=== PATIENT | female | born 1940 | race Caucasian/White ===

== ENCOUNTER 2020-10-08 | Outpatient (REF) | payer MEDICARE, MEDICAID, SELFPAY | END 2020-10-08 00:01 | disposition home or self-care (01) | LOC: HO.VC | PROVIDERS: Visit Provider Internal Medicine | DX: Z23 Encounter for immunization (principal) | CPT/HCPCS: 0011A ==

== ENCOUNTER 2020-11-05 | Outpatient (REF) | payer MEDICARE, MEDICAID, SELFPAY | END 2020-11-05 00:01 | disposition home or self-care (01) | LOC: HO.VC | PROVIDERS: Visit Provider Internal Medicine | DX: Z23 Encounter for immunization (principal) | CPT/HCPCS: 0012A ==

== ENCOUNTER 2021-07-23 | Outpatient (REF) | payer MEDICARE, MEDICAID, SELFPAY ==
[2021-07-24 10:54] LABS: Appearance Urine CLOUDY; Color Urine YELLOW; Glucose Urine UA NEG (NEG); Leukocyte Esterase Urine NEG (NEG); Nitrite Urine NEG (NEG); Specific Gravity - Urine 1.015 (1.005-1.025); Urine Blood NEG (NEG); Urine Ketones NEG (NEG); Urine Protein NEG (NEG-TRACE)
== END 2021-07-23 00:01 | disposition home or self-care (01) ==
LOC: HO.LNP
PROVIDERS: Visit Provider Internal Medicine
DX: E03.9 Hypothyroidism, unspecified (principal); F41.1 Generalized anxiety disorder; F17.200 Nicotine dependence, unspecified, uncomplicated
CPT/HCPCS: 81003

== ENCOUNTER 2021-07-23 08:21 | Outpatient (REF) | payer MEDICARE, MEDICAID, SELFPAY ==
[2021-07-23 09:11] LABS: Hematocrit 36.7 % (37.0-47.0); Hemoglobin 11.8 g/dl (12.0-16.0); Mean Corpuscular HGB Conc 32.2 g/dl (31.0-35.0); Mean Corpuscular Hemoglobin 29.9 pg (27.0-33.0); Mean Corpuscular Volume 93.1 fL (80.0-98.0); Mean Platelet Volume 9.8 fL (9.4-12.3); Platelet Count 239 X10*3/uL (160-400); Red Blood Count 3.94 X10*6/uL (4.20-5.50); Red Cell Distribution Width 13.3 % (11.0-16.0); White Blood Count 6.1 X10*3/uL (4.8-10.8)
[2021-07-23 09:36] LABS: Alanine Aminotransferase 7 U/L (0-31); Albumin Level 3.5 g/dL (3.5-5.0); Alkaline Phosphatase 85 U/L (39-117); Anion Gap 10 (12-20); Aspartate Amino Transferase 14 U/L (5-31); Bilirubin Direct 0.2 mg/dL (0.0-0.5); Bilirubin Total 0.3 mg/dL (0.0-1.0); Blood Urea Nitrogen 14 mg/dL (9-16); C Reactive Protein 1.51 mg/dL (< or = 0.50); Calcium 8.7 mg/dL (8.4-10.2); Carbon Dioxide 27 mmol/L (22-29); Chloride 104 mmol/L (96-108); Cholesterol 123 mg/dL; Estimated Glomerular Filt Rate 41; Glucose Random 99 mg/dL (60-115); HDL Cholesterol 30 mg/dL; LDL Cholesterol Calculated 75 mg/dl; Potassium 4.7 mmol/L (3.3-5.1); Sodium 136 mmol/L (135-145); Total Protein 7.3 g/dL (6.5-8.0); Triglycerides 91 mg/dL
[2021-07-23 09:56] LABS: Thyroid Stimulating Hormone 0.58 uIU/mL (0.32-4.0)
== END 2021-07-23 08:22 | disposition home or self-care (01) ==
LOC: HO.LAB 08:21
PROVIDERS: PCP Internal Medicine; Visit Provider Internal Medicine
DX: E03.9 Hypothyroidism, unspecified (principal); F41.1 Generalized anxiety disorder; F17.200 Nicotine dependence, unspecified, uncomplicated
CPT/HCPCS: 36415; 80048; 80061; 80076; 81003; 84443; 85027; 86140

== ENCOUNTER 2021-07-24 10:28 | Outpatient (REF) | payer MEDICARE, MEDICAID, SELFPAY | END 2021-07-24 10:29 | disposition home or self-care (01) | LOC: HO.LNP 10:28 | PROVIDERS: Visit Provider Internal Medicine | DX: Z13.89 Encounter for screening for other disorder (principal) ==

== ENCOUNTER 2021-09-08 08:50 | Outpatient (REF) | payer MEDICARE, MEDICAID, SELFPAY ==
--- NOTE | ~2021-09-08 | MM_ITS ---
EXAMINATION: BONE DENSITOMETRY CLINICAL INDICATION: Screening for osteoporosis. COMPARISON: Baseline BD dated 06/30/2007. TECHNIQUE: Using a Chronicity DXA System (software version: 13.1) manufactured by [employer], dual-energy x-ray absorptiometry was performed of the lumbar spine and left hip. The images are of good technical quality. Summary results are attached. FINDINGS: AP SPINE L1-L2 (excluding L3 and L4): The data of L1-L4 has been changed to exclude the L3 and L4 vertebral bodies, because degenerative changes at these levels may cause overestimation of lumbar spine density. Current: BMD 0.860 g/cm2, Z-score -1.9, T-score -2.5, osteoporosis, 15.5% decrease from baseline (<5% change is not significant). Baseline: BMD 1.018 g/cm2. LEFT FEMUR, NECK: Current: BMD 0.714 g/cm2, Z-score -0.9, T-score -2.3, osteopenia. Baseline: BMD 0.881 g/cm2. LEFT FEMUR, TOTAL: Current: BMD 0.822 g/cm2, Z-score -0.3, T-score -1.5, osteopenia, 14.6% decrease from baseline (<5% change is not significant). Baseline: BMD 0.962 g/cm2. IDENTIFIED RISK FACTORS: Menopause, tobacco use (current smoker), history of fracture (adult). HISTORY OF FRACTURE: Femur/hip, Tib/Fib. MEDICATIONS: None listed. MM/XR DEXA axial skeleton IMPRESSION: 1. DIAGNOSIS: Osteoporosis based on the lowest T-score value of -2.5 in the lumbar spine applying World Health Organization criteria. 2. 10-YEAR FRACTURE RISK PREDICTION, FRAX: According to the guidelines, FRAX calculation should only be performed on patients in the osteopenia bone density category. 3. Treatment Recommendations: NOF guidelines recommend consideration for treatment in postmenopausal women and men age 50 and older presenting with the following: -A hip or vertebral (clinical or morphometric) fracture. -T-score less than or equal to -2.5 at the femoral neck or spine after appropriate evaluation to exclude secondary causes. -Low bone mass at the hip or spine and a 10-year fracture probability by FRAX of greater than or equal to 3% for hip fracture or greater than or equal to 20% for major osteoporotic fracture based on the [place] adapted WHO algorithm. 4. Other Recommendations: All treatment decisions require clinical judgment and consideration of individual patient factors, including patient preferences, comorbidities, previous drug use, risk factors not captured in the FRAX model (e.g. frailty, falls, vitamin D deficiency, increased bone turnover, interval significant decline in bone density) and possible under or overestimation of fracture risk by FRAX. Additional medical evaluation for secondary cause of low bone mineral density may be appropriate. FUTURE SCAN RECOMMENDATION: People with diagnosed cases of osteoporosis or at high risk for fracture should have regular bone mineral density tests. For patients eligible for Medicare, routine testing is allowed once every 2 years. The testing frequency can be increased to one year for patients who have rapidly progressing disease, those who are receiving or discontinuing medical therapy to restore bone mass, or have additional risk factors.
== END 2021-09-08 08:51 | disposition home or self-care (01) ==
LOC: HO.MAMMO 08:50
PROVIDERS: PCP Internal Medicine; Visit Provider Internal Medicine
DX: Z13.820 Encounter for screening for osteoporosis (principal); M81.0 Age-related osteoporosis without current pathological fracture; N95.8 Other specified menopausal and perimenopausal disorders; Z78.0 Asymptomatic menopausal state; F17.200 Nicotine dependence, unspecified, uncomplicated; Z87.81 Personal history of (healed) traumatic fracture
CPT/HCPCS: 77080

== ENCOUNTER 2022-07-20 08:08 | Outpatient (REF) | payer OTHER, SELFPAY ==
[2022-07-20 08:23] LABS: MANUAL DIFF FLAG NO
[2022-07-20 09:18] LABS: Basophils Percent Auto 0.6 % (0-2); Eosinophils Absolute Auto 0.1 X10*3/uL (0.0-0.4); Hematocrit 37.3 % (37.0-47.0); Imm Gran Abs Auto 0.01 X10*3/uL (0.00-0.03); Imm Gran Pct Auto 0.1 % (0.0-0.4); Lymphocytes Percent Auto 28.6 % (20-40); Mean Corpuscular HGB Conc 32.2 g/dl (31.0-35.0); Mean Corpuscular Hemoglobin 30.5 pg (27.0-33.0); Mean Corpuscular Volume 94.7 fL (80.0-98.0); Mean Platelet Volume 10.1 fL (9.4-12.3); Monocytes Absolute Auto 0.4 X10*3/uL (0.1-1.2); Neutrophils Absolute Auto 4.5 x10*3/uL (2.0-8.3); Neutrophils Percent Auto 63.7 % (45-73); Platelet Count 259 X10*3/uL (160-400); Red Blood Count 3.94 X10*6/uL (4.20-5.50); Red Cell Distribution Width 13.7 % (11.0-16.0); White Blood Count 7.1 X10*3/uL (4.8-10.8)
[2022-07-20 09:44] LABS: Alanine Aminotransferase 7 U/L (0-31); Albumin Level 3.5 g/dL (3.5-5.0); Alkaline Phosphatase 83 U/L (39-117); Anion Gap 13 (12-20); Aspartate Amino Transferase 10 U/L (5-31); Bilirubin Total 0.2 mg/dL (0.0-1.0); Blood Urea Nitrogen 16 mg/dL (9-16); Calcium 8.9 mg/dL (8.4-10.2); Carbon Dioxide 28 mmol/L (22-29); Chloride 101 mmol/L (96-108); Cholesterol 111 mg/dL; Estimated Glomerular Filt Rate 33; Glucose Fasting 90 mg/dL (60-99); HDL Cholesterol 30 mg/dL; LDL Cholesterol Calculated 63 mg/dl; Potassium 4.3 mmol/L (3.3-5.1); Sodium 138 mmol/L (135-145); Total Protein 7.2 g/dL (6.5-8.0); Triglycerides 91 mg/dL
[2022-07-20 10:07] LABS: Thyroid Stimulating Hormone 0.18 uIU/mL (0.32-4.0)
[2022-07-20 11:42] LABS: Vitamin D 25-OH Total 26.7 ng/mL (>30)
== END 2022-07-20 08:09 | disposition home or self-care (01) ==
LOC: HO.LAB 08:08
PROVIDERS: PCP Internal Medicine; Visit Provider Internal Medicine
DX: I10 Essential (primary) hypertension (principal); E03.9 Hypothyroidism, unspecified; E55.9 Vitamin D deficiency, unspecified; E78.00 Pure hypercholesterolemia, unspecified
CPT/HCPCS: 36415; 80053; 80061; 82306; 84443; 85025

== ENCOUNTER 2022-07-23 08:18 | Outpatient (REF) | payer OTHER, SELFPAY ==
--- NOTE | ~2022-07-23 | MM_ITS ---
EXAMINATION: MM SCREENING DIGITAL BREAST TOMOSYNTHESIS, BILATERAL CLINICAL INFORMATION: Screening. Asymptomatic. The lifetime risk of breast cancer based on the Tyrer-Cuzick Model is 2%. COMPARISON: Mammography: 03/17/2016, 05/02/2013 TECHNIQUE: Digital breast tomosynthesis is performed in both the craniocaudal and mediolateral oblique views along with computer-aided detection (CAD). Synthesized 2D images are generated from the tomosynthesis. FINDINGS: The breasts are almost entirely fatty (ACR BI-RADS breast composition Category a). Background stromal markings are normal. No developing density or architectural abnormality. No interval mass. The skin contours are smooth. No abnormal calcifications on the right. Left breast has interval loosely grouped calcifications periareolar 3:00 position. There is an old intradermal calcification left areola. Patient will be recalled for additional magnification views left breast. MM/MM tomosynthesis screening BI IMPRESSION: Left: -New loosely grouped calcifications periareolar 3:00. Right: -No mammographic evidence of malignancy. ASSESSMENT: BI-RADS 0: Incomplete - Need Additional Imaging Evaluation RECOMMENDATION: 1. Additional views of the left breast (magnification CC, magnification ML). 2. Radiology department staff will contact the patient for additional imaging. This patient's information was entered into a reminder system with a target due date for their next mammogram.
== END 2022-07-23 08:19 | disposition home or self-care (01) ==
LOC: HO.MAMMO 08:18
PROVIDERS: PCP Internal Medicine; Visit Provider Nurse Practitioner Family
DX: Z12.31 Encounter for screening mammogram for malignant neoplasm of breast (principal)
CPT/HCPCS: 77063; 77067

== ENCOUNTER 2022-08-09 10:46 | Outpatient (REF) | payer OTHER, SELFPAY ==
--- NOTE | ~2022-08-09 | MM_ITS ---
EXAMINATION: MM DIAGNOSTIC DIGITAL MAMMOGRAPHY, LEFT CLINICAL INFORMATION: Recall from screening for new loosely grouped calcifications 3:00 periareolar left breast. COMPARISON: Mammography: 07/23/2022, 03/17/2016 TECHNIQUE: Digital mammography is performed in the following views: Magnification CC, magnification ML. FINDINGS: The breasts are almost entirely fatty (ACR BI-RADS breast composition Category a). The additional views show loosely grouped calcifications in linear/segmental distribution anterior 2:30 position. The calcifications vary in size and at least 10 in number. There are new from prior remote mammography 2015. No other grouped calcifications in either breast on recent mammography. Results and management options are discussed with the patient at time of visit. Patient is in agreement with attempted stereotactic sampling. MM/MM added views LT IMPRESSION: New loosely grouped calcifications in linear/segmental distribution periareolar left breast. ASSESSMENT: BI-RADS 4: Suspicious (subcategory 4A: Low suspicion for malignancy) RECOMMENDATION: Stereotactic sampling left breast calcifications. This patient's information was entered into a reminder system with a target due date for their next mammogram.
== END 2022-08-09 10:47 | disposition home or self-care (01) ==
LOC: HO.MAMMO 10:46
PROVIDERS: PCP Internal Medicine; Visit Provider Nurse Practitioner Family
DX: R92.1 Mammographic calcification found on diagnostic imaging of breast (principal)
CPT/HCPCS: 77065

== ENCOUNTER 2022-08-12 09:00 | Outpatient (REF) | payer OTHER, SELFPAY ==
--- NOTE | ~2022-08-12 | MM_ITS ---
EXAMINATION: STEREOTACTIC TOMOSYNTHESIS-GUIDED VACUUM-ASSISTED BREAST BIOPSY, LEFT SPECIMEN RADIOGRAPH, LEFT POST PROCEDURE DIGITAL MAMMOGRAM, LEFT CLINICAL INFORMATION: There are loosely grouped calcifications periareolar left breast. COMPARISON: Mammography 08/09/2022, 07/23/2022, 03/17/2016. TECHNIQUE/PROCEDURE: Informed consent was obtained from the patient after discussion of the benefits, risks, and alternatives to biopsy today. Patient appeared to understand. Gave opportunity for questions. Patient signed consent form. BIOPSY TABLE: Fire[employer] Aff[employer] Prone Biopsy System. LESION: New loosely grouped calcifications periareolar left breast. LOCAL ANESTHESIA: 10 mL carbonated 1% lidocaine; 10 mL 1% lidocaine with epinephrine. DERMATOTOMY: Single skin james dermatotomy performed. NEEDLE: [employer] 9-gauge vacuum assisted core biopsy device. APPROACH: lateral medial. TARGETING: Combination of digital breast tomosynthesis and stereotactic digital mammography used for targeting. CORES: 5. CLIP: [employer] T-shaped marker. SPECIMEN RADIOGRAPH: Specimen radiograph is taken in separate room using digital mammography. The index calcifications are in the excised cores. There are at least 10 calcifications in the cores. POST PROCEDURE UNILATERAL DIGITAL MAMMOGRAM: The post biopsy mammogram is performed in separate room using separate digital mammography equipment from the biopsy procedure. CC and ML views are obtained. There are scattered areas of fibroglandular density (breast composition category: b). The clip marker is in position. The calcifications are markedly decreased at the biopsy site. No gross hematoma. The patient tolerated the procedure well. No immediate complications. Home instructions reviewed with the patient. Final pathology results are pending. MM/MM stereotactic biopsy LT IMPRESSION: 1. Digital tomosynthesis-guided core biopsy left breast with clip placement. 2. Specimen radiograph taken and post procedure mammogram. 3. Final pathology results pending. An addendum report will be issued.
[2022-08-12] MEDS: Lidocaine HCl 1 % 20 ML VIAL 10 ML SUBCUT (11:07)
[2022-08-12] MEDS: Sodium Bicarbonate 8.4% 50 MEQ/50 ML VIAL SUBCUT (11:08)
== END 2022-08-12 09:01 | disposition home or self-care (01) ==
LOC: HO.MAMMO 09:00
PROVIDERS: PCP Internal Medicine; Visit Provider Surgery
DX: R92.1 Mammographic calcification found on diagnostic imaging of breast (principal)
CPT/HCPCS: 19081; 88305; 99202; A4648

== ENCOUNTER → 2022-08-19 09:11 | Outpatient (BNVA) | payer OTHER, SELFPAY | PROVIDERS: PCP Internal Medicine; Visit Provider Physician Assistant Surgical | DX: R92.1 Mammographic calcification found on diagnostic imaging of breast (principal); Z98.890 Other specified postprocedural states | CPT/HCPCS: 99212 ==

== ENCOUNTER 2023-01-13 08:13 | Outpatient (REF) | payer OTHER, MEDICAID, SELFPAY ==
[2023-01-13 09:07] LABS: Hematocrit 34.1 % (37.0-47.0); Hemoglobin 11.1 g/dl (12.0-16.0); Mean Corpuscular HGB Conc 32.6 g/dl (31.0-35.0); Mean Corpuscular Volume 95.3 fL (80.0-98.0); Mean Platelet Volume 9.9 fL (9.4-12.3); Platelet Count 228 X10*3/uL (160-400); Red Blood Count 3.58 X10*6/uL (4.20-5.50); Red Cell Distribution Width 13.3 % (11.0-16.0); White Blood Count 5.7 X10*3/uL (4.8-10.8)
[2023-01-13 09:50] LABS: Alanine Aminotransferase 6 U/L (0-31); Albumin Level 3.5 g/dL (3.5-5.0); Alkaline Phosphatase 67 U/L (39-117); Anion Gap 9 (12-20); Aspartate Amino Transferase 9 U/L (5-31); Bilirubin Direct 0.2 mg/dL (0.0-0.5); Bilirubin Total 0.4 mg/dL (0.0-1.0); Blood Urea Nitrogen 20 mg/dL (9-16); Calcium 8.9 mg/dL (8.4-10.2); Carbon Dioxide 29 mmol/L (22-29); Chloride 106 mmol/L (96-108); Estimated Glomerular Filt Rate 32; Glucose Random 90 mg/dL (60-115); Potassium 4.3 mmol/L (3.3-5.1); Sodium 140 mmol/L (135-145); Total Protein 6.9 g/dL (6.5-8.0)
[2023-01-13 10:07] LABS: Thyroid Stimulating Hormone 0.32 uIU/mL (0.32-4.0)
== END 2023-01-13 08:14 | disposition home or self-care (01) ==
LOC: HO.LAB 08:13
PROVIDERS: PCP Internal Medicine; Visit Provider Internal Medicine
DX: N18.31 Chronic kidney disease, stage 3a (principal); E03.9 Hypothyroidism, unspecified; J44.9 Chronic obstructive pulmonary disease, unspecified
CPT/HCPCS: 36415; 80048; 80076; 84443; 85027

== ENCOUNTER 2023-04-14 08:18 | Outpatient (AMB) | payer OTHER, SELFPAY ==
--- NOTE | 2023-04-14 08:47 | MHC.PC.OV ---
Vital Signs 04/14/23 08:49 Height 5 ft 2.5 in Weight 174 lb BMI 31.3 BP 130/72 Blood Pressure Location Lt brachial Position Sitting Pulse 66 Pulse Source Pulse Oximeter Pulse Oximetry (%) 96 Oxygen Delivery Method Room Air Intake Visit Reasons: 3mth f/u Intake Note: Patient is here to follow up on GERD, Hypercholesterolemia, COPD. 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: Not Required per policy Accompanied by: Self / Same As Patient Allergies No Known Allergies Allergy (Verified 04/30/23 08:43) Medication List - Last Reconciled 04/30/23 by James Del Toro MD albuterol sulfate 90 mcg/actuation 2 puffs inhalation Q6H PRN alendronate 70 mg PO QWEEK calcium carbonate-vitamin D3 500 mg-10 mcg (400 unit) 1 tab PO TID 90 days disposable gloves (Disposable Latex-Free Gloves) As directed fluticasone propion-salmeterol 250-50 mcg/dose 1 ea PO BID levothyroxine 112 mcg PO QAM lorazepam 1 mg PO DAILY PRN omeprazole 20 mg PO DAILY oxybutynin chloride 5 mg PO TID [reusable underpad/chux As directed] simvastatin 20 mg PO BEDTIME umeclidinium 62.5 mcg/actuation (Incruse Ellipta) 1 inh PO DAILY Tobacco use date assessed: 04/14/23 Fall risk assessment: No Falls in past year Last assessed Fall Risk: 04/14/23 Dental Screening Dental Screen Date: 04/14/23 Did you have a dental visit in the last 12 months?: No Did you have a dental problem in the last 6 months where you did not have access to dental care?: No Was dental information given to patient?: No HPI 3mth f/u HPI Details 82-year-old female presents to the office to discuss her chronic medical conditions. Patient is requesting a refill on her anxiolytic medication. Her breathing is stable with the current inhaler she is taking. Continues to take the thyroid medications as instructed. Able to function and do all activities of daily living. [facility] Medical History Acquired hypothyroidism Anxiety Anxiety state, unspecified Borderline hypercholesterolemia Breast calcification, left Chronic obstructive pulmonary disease, unspecified Current smoker GERD (gastroesophageal reflux disease) Obesity (BMI 30-39.9) Overactive bladder Pure hypercholesterolemia Smoker Urge incontinence Surgical History History of D&C Family History Father No problems noted. Mother No problems noted. Brother No problems noted. Social History Housing: Apartment Alcohol intake: never Patient Tobacco Use Status: Current everyday Tobacco user Tobacco use type: Cigarette Cigarette Packs Per Day: 0.5 Cigarettes Per Day: 15 e-Cigarette/Vaping Use: Never Used Second Hand Smoke Exposure: Yes service: No Current occupational status: disabled Cognitive needs: Yes (walker) Hearing needs: No Vision needs: Yes (Glasses) Questionnaire Thrive Questionnaire Date Thrive assessed: 01/06/23 ZANA-7 AMB Questionnaire ZANA-7 Date ZANA - 7 assessed: 01/06/23 Source: Developed by Drs. Justin Gutierrez, Nicol Lorenzo, Star Arciniega and colleagues, with an educational krista from [employer]. Physical exam (Primary Care) Vital Signs: Last Vital Signs Pulse 66 04/14/23 08:49 BP 130/72 04/14/23 08:49 Pulse Ox 96 04/14/23 08:49 Oxygen Delivery Method Room Air 04/14/23 08:49 Care Plan Goal for BP management: Blood pressure is stable. Continue current medications. BMI result Body Mass Index 31.3 BMI Assessment/Plan discussion: High (1 lb per week weight loss suggested.) BMI High, discussed plan: lifestyle, weight reduction and dietary Tobacco/Smoking Status: Tobacco use Status Tobacco use date assessed 04/14/23 04/14/23 08:56 Patient Tobacco Use Status Current everyday Tobacco 04/14/23 08:56 Tobacco use type Cigarette 04/14/23 08:56 e-Cigarette/Vaping Use Never Used 04/14/23 08:56 Are you ready to quit: No Tobacco cessation counseling provided: Yes Items discussed: Other (Dangers of continuing to smoke explained.) Thrive Assessment: Date of Thrive Assessment Date Thrive assessed 01/06/23 04/14/23 08:56 Const General: cooperative, healthy appearing and comfortable [facility] Head: Yes normal to inspection and Yes atraumatic Eyes General: appearance normal, both eyes and all related structures Neck Neck: Yes normal visual inspection and Yes full ROM Chest Chest palpation & inspection: normal inspection of the chest Resp Effort & Inspection: normal respiratory effort Auscultation: clear to auscultation bilaterally Cardio Jugular venous distension: no JVD Palpation: normal PMI Rate: regular rate Heart sounds: S1 normal heart sound present and S2 normal heart sound present GI Palpation (GI): Soft to palpation and No hepatosplenomegaly present Extrem General: Yes normal to inspection and Yes full ROM Assessment and Plan Assessment & Plan (1) Breast calcification, left: Code(s): R92.1 - Mammographic calcification found on diagnostic imaging of breast Plan: Condition is stable. (2) Stage 1 chronic kidney disease: Code(s): N18.1 - Chronic kidney disease, stage 1 Plan: Condition is stable. (3) Obesity (BMI 30-39.9): Code(s): E66.9 - Obesity, unspecified Plan: Counseling to reduce weight done. (4) Smoker: Code(s): F17.200 - Nicotine dependence, unspecified, uncomplicated Plan: Patient was counseled to quit smoking. (5) Anxiety state, unspecified: Code(s): F41.1 - Generalized anxiety disorder Plan: Continue anxiolytics at the same dosage. (6) Acquired hypothyroidism: Code(s): E03.9 - Hypothyroidism, unspecified Plan: TSH is in range. Continue Synthroid at same dosage. (7) Chronic obstructive pulmonary disease, unspecified: Code(s): J44.9 - Chronic obstructive pulmonary disease, unspecified Qualifiers: COPD type: unspecified COPD Qualified Code(s): J44.9 - Chronic obstructive pulmonary disease, unspecified Plan: Continue inhalers. Currently stable. Medications: Refilled lorazepam 1 mg PO DAILY PRN 15 tabs 1RF anxiety Coding Level of Care Code Est Pt Level 4 (27731) Diagnoses Breast calcification, left R92.1 Stage 1 chronic kidney disease N18.1 Obesity (BMI 30-39.9) E66.9 Smoker F17.200 Anxiety state, unspecified F41.1 Acquired hypothyroidism E03.9 Chronic obstructive pulmonary disease, unspecified J44.9 COPD type: unspecified COPD
[2023-04-14 08:49] VITALS: BP 130/72; PULSE 66; O2SAT 96; BMI 31.3
== END 2023-04-14 09:42 | disposition home or self-care (01) ==
PROVIDERS: Visit Provider Internal Medicine
DX: N18.1 Chronic kidney disease, stage 1 (principal); F17.210 Nicotine dependence, cigarettes, uncomplicated; E03.9 Hypothyroidism, unspecified; J44.9 Chronic obstructive pulmonary disease, unspecified; R92.1 Mammographic calcification found on diagnostic imaging of breast
CPT/HCPCS: 99214

== ENCOUNTER 2023-07-07 08:45 | Outpatient (AMB) | payer OTHER, SELFPAY ==
[2023-07-07 08:45] VITALS: BP 132/78; PULSE 79; O2SAT 93; BMI 31.5
--- NOTE | 2023-07-07 08:45 | A.OFFVIS_ITS ---
Intake Vital Signs 07/07/23 08:45 Height 5 ft 2.5 in Weight 175 lb BMI 31.5 BP 132/78 Blood Pressure Location Lt brachial Position Sitting Pulse 79 Pulse Source Pulse Oximeter Pulse Oximetry (%) 93 Oxygen Delivery Method Room Air Intake Visit Reasons: SWV [id number] Allergies No Known Allergies Allergy (Verified 07/07/23 09:11) Medication List - Last Reconciled 07/07/23 by HARRIS Bowling albuterol sulfate 90 mcg/actuation 2 puffs inhalation Q6H PRN alendronate 70 mg PO QWEEK calcium carbonate-vitamin D3 500 mg-10 mcg (400 unit) 1 tab PO TID 90 days disposable gloves (Disposable Latex-Free Gloves) As directed fluticasone propion-salmeterol 250-50 mcg/dose 1 ea PO BID levothyroxine 112 mcg PO QAM lorazepam 1 mg PO DAILY PRN omeprazole 20 mg PO DAILY oxybutynin chloride 5 mg PO TID [reusable underpad/chux As directed] simvastatin 20 mg PO BEDTIME umeclidinium 62.5 mcg/actuation (Incruse Ellipta) 1 inh PO DAILY HPI SWV [id number] HPI Details Patient is an 82-year-old female who presents today for subsequent wellness visit. Patient of Dr. Del Toro. Today we discussed patient's need for mammogram. Up-to-date with immunizations. Bone density screen 09/2021 with osteoporosis. [place] of care was reviewed with the patient and she was provided with a screening schedule. End of life planning was discussed with the patient and she was provided with healthcare proxy form, MOLST form is on file. [facility] Medical History Breast calcification, left Obesity (BMI 30-39.9) Smoker Anxiety GERD (gastroesophageal reflux disease) Pure hypercholesterolemia Anxiety state, unspecified Overactive bladder Urge incontinence Current smoker Acquired hypothyroidism Chronic obstructive pulmonary disease, unspecified Borderline hypercholesterolemia Surgical History History of D&C Family History Father No problems noted. Mother No problems noted. Brother No problems noted. Social History Housing: Apartment Alcohol intake: never Patient Tobacco Use Status: Current everyday Tobacco user Tobacco use type: Cigarette Cigarette Packs Per Day: 0.5 Cigarettes Per Day: 15 e-Cigarette/Vaping Use: Never Used Second Hand Smoke Exposure: Yes service: No Current occupational status: disabled Cognitive needs: Yes (walker) Hearing needs: No Vision needs: Yes (Glasses) Questionnaire Medicare Wellness Checkup What is your age?: 80 or older (81) What gender do you identify with?: female During the past 4 weeks, how much have you been bothered by emotional problems such as feeling anxious, depressed, irritable, sad or downhearted, and blue?: moderately During the past 4 weeks, has your physical & emotional health limited your social activities with family, friends, neighbors, or groups?: moderately During the past 4 weeks, how much bodily pain have you generally had?: mild pain During the past 4 weeks, was someone available to help you if you needed & wanted help?: yes, some During the past 4 weeks, what was the hardest physical activity you could do for at least 2 minutes?: moderate Can you get to places out of walking distance without help? (For eg., can you travel alone on buses, taxis or drive your car?): No Can you go shopping for groceries or clothes without someone's help?: No (BILINGUAL SPEECH LANGUAGE PATHOLOGIST help) Can you prepare your own meals?: Yes Can you do your housework without help?: No (sometimes) Because of any health problems, do you need the help of another person with your personal care needs such as eating, bathing, dressing or getting around the house?: Yes Can you handle your own money without help?: Yes During the past 4 weeks, how would you rate your health in general?: good During the past 4 weeks how have things been going for you?: good & bad parts about equal Are you having difficulties driving your car?: not applicable, I don't use a car Do you always fasten your seat belt when you are in a car?: yes, usually During past 4 weeks, have you been bothered by the following: never: Sexual problems? and Trouble eating well?, seldom: Problems using the telephone? and sometimes: Falling or dizzy when standing up, Teeth or denture problems? and Tiredness or fatigue? Have you fallen 2 or more times in the past year?: No Are you afraid of falling?: Yes Are you a smoker?: yes, but I'm not ready to quit During the past 4 weeks, how many drinks of wine, beer, or other alcoholic beverages did you have?: no alcohol at all Do you exercise for about 20 minutes 3 or more times a week?: yes, most of the time Have you been given information to help with the following?: yes: Keeping track of your medications? and no: Hazards in your house that might hurt you? How often do you have trouble taking medicines the way you have been told to take them?: I do not have to take medicine How confident are you that you can control & manage most of your health problems?: somewhat confident What is your race?: White Mini Mental State Exam (MMSE) Orientation What is the (year) (season) (date) (day) (month)?: year, season, date, day and month Score Score: 5 Activity of Daily Living Bathing - sponge bath, tub bath or shower: receives no assistance (gets in/out by self, if usual bathing means Dressing - getting clothes from closets & drawers, including inner/outer garments & fasteners.: gets clothes & gets completely dressed without help Toileting - going to the 'toilet room' for urine/bowel elimination & cleaning self/arranging clothes: goes to toilet room, cleans self, arranges clothes without help Transfer: moves in & out of bed and chair without help (may use support object) Continence: controls urination/bowel movements completely by self Feeding: feeds self without help Total Score: 0 Information obtained from: patient Using telephone: independent Traveling: dependent Shopping: dependent Preparing meals: independent Housework: dependent Taking medicine: independent Managing money: independent PHQ-9 Over the last 2 weeks, how often have you been bothered by any of the following problems? 1. Little interest or pleasure in doing things: several days 2. Feeling down, depressed, or hopeless: several days 3. Trouble falling or staying asleep, or sleeping too much: several days 4. Feeling tired or having little energy: several days 5. Poor appetite or overeating: several days 6. Feeling bad about yourself - or that you are a failure or have let yourself or your family down: several days 7. Trouble concentrating on things, such as reading the newspaper or watching television: not at all 8. Moving or speaking so slowly that other people could have noticed. Or the opposite - being so fidgety or restless that you have been moving around a lot more than usual: several days 9. Thoughts that you would be better off or of hurting yourself in some way: not at all Total score: 7 Depression Screening Interpretation: Negative Depression Screening Done: Yes [id number] - PHQ-9 Billing: Yes Source: Developed by Drs. Justin Gutierrez, Nicol Lorenzo, Star Arciniega and colleagues, with an educational krista from [employer]. Physical Exam Vital Signs: Last Vital Signs Pulse 79 07/07/23 08:45 BP 132/78 07/07/23 08:45 Pulse Ox 93 07/07/23 08:45 Oxygen Delivery Method Room Air 07/07/23 08:45 BMI result Body Mass Index 31.5 Const General: cooperative and no acute distress Orientation/consciousness: patient oriented x3 HEENT Other: Whisper test: pass Neuro Other: Balance: Normal - patient ambulates with a rolling walker Get up and walk: unable to Romberg: negative Tandem gait: unable to General: patient oriented x3 Assessment & Plan Assessment & Plan (1) Obesity (BMI 30-39.9): Code(s): E66.9 - Obesity, unspecified Plan: Healthy food choices and exercise as tolerated (2) GERD (gastroesophageal reflux disease): Code(s): K21.9 - Gastro-esophageal reflux disease without esophagitis Qualifiers: Esophagitis presence: without esophagitis Qualified Code(s): K21.9 - Gastro-esophageal reflux disease without esophagitis Plan: Omeprazole 20 mg daily Avoid GERD trigger foods Do not lay down 2-3 hours after evening meal (3) Pure hypercholesterolemia: Code(s): E78.00 - Pure hypercholesterolemia, unspecified Plan: Continue current treatment Low-cholesterol diet (4) Osteoporosis: Code(s): M81.0 - Age-related osteoporosis without current pathological fracture Qualifiers: Osteoporosis type: age-related Presence of current pathological fracture: without current pathological fracture Qualified Code(s): M81.0 - Age- related osteoporosis without current pathological fracture Plan: Patient is on alendronate 70 mg weekly (5) Encounter for general adult medical examination without abnormal findings: Code(s): Z00.00 - Encounter for general adult medical examination without abnormal findings (6) Acquired hypothyroidism: Code(s): E03.9 - Hypothyroidism, unspecified Plan: Levothyroxine 112 mcg daily (7) Chronic obstructive pulmonary disease, unspecified: Code(s): J44.9 - Chronic obstructive pulmonary disease, unspecified Qualifiers: COPD type: unspecified COPD Qualified Code(s): J44.9 - Chronic obstructive pulmonary disease, unspecified Plan: Stable Continue current treatment (8) Screening for breast cancer: Code(s): Z12.39 - Encounter for other screening for malignant neoplasm of breast (9) Smoker: Code(s): F17.200 - Nicotine dependence, unspecified, uncomplicated Plan: Encouraged smoking cessation Patient declined nicotine patch Orders: Orders MM tomosynthesis screening BI 08/22/23 Z12.31 - Encounter for screening mammogram for malignant neoplasm of breast Quality Reporting (2019) Depression/Bipolar (159/160/161/177) PHQ-9: Total score: 7 Coding Level of Care Code Medicare Subsequent (G0439) Diagnoses Obesity (BMI 30-39.9) E66.9 Gastroesophageal reflux disease without esophagitis K21.9 Esophagitis presence: without esophagitis Pure hypercholesterolemia E78.00 Age-related osteoporosis without current pathological fracture M81.0 Osteoporosis type: age-related Presence of current pathological fracture: without current pathological fracture Encounter for general adult medical examination without abnormal findings Z00.00 Acquired hypothyroidism E03.9 Chronic obstructive pulmonary disease, unspecified COPD type J44.9 COPD type: unspecified COPD Screening for breast cancer Z12.39 Smoker F17.200 CPT Codes Advance Care Planning - Advance Care Planning discussion: On file, no changes ([id number]) Advance Care Planning - Time spent: 1-15 minutes, on File ([id number]) Advance Care Planning Advance Care Planning discussion: On file, no changes Date of discussion: 07/07/23 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
== END 2023-07-07 10:11 | disposition home or self-care (01) ==
PROVIDERS: Visit Provider Nurse Practitioner Family
DX: Z00.00 Encounter for general adult medical examination without abnormal findings (principal); J44.9 Chronic obstructive pulmonary disease, unspecified; E66.9 Obesity, unspecified; Z68.31 Body mass index [BMI] 31.0-31.9, adult; K21.9 Gastro-esophageal reflux disease without esophagitis; E78.00 Pure hypercholesterolemia, unspecified; M81.0 Age-related osteoporosis without current pathological fracture; E03.9 Hypothyroidism, unspecified; F17.210 Nicotine dependence, cigarettes, uncomplicated
CPT/HCPCS: 1123F; G0439

== ENCOUNTER 2023-07-14 09:00 | Outpatient (AMB) | payer OTHER, SELFPAY ==
--- NOTE | 2023-07-14 09:18 | MHC.PC.OV ---
Vital Signs 07/14/23 09:20 Height 5 ft 2.5 in Weight 185 lb 2 oz BMI 33.3 BP 136/76 Blood Pressure Location Lt brachial Position Sitting Pulse 105 H Pulse Source Pulse Oximeter Pulse Oximetry (%) 94 Oxygen Delivery Method Room Air Intake Visit Reasons: 3 mon F/U Intake Note: Patient is here to follow up on CKD, GERD, COPD. 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: Not Required per policy Accompanied by: Self / Same As Patient Allergies No Known Allergies Allergy (Verified 07/17/23 13:58) Medication List - Last Reconciled 07/17/23 by James Del Toro MD albuterol sulfate 90 mcg/actuation 2 puffs inhalation Q6H PRN alendronate 70 mg PO QWEEK calcium carbonate-vitamin D3 500 mg-10 mcg (400 unit) 1 tab PO TID 90 days disposable gloves (Disposable Latex-Free Gloves) As directed fluticasone propion-salmeterol 250-50 mcg/dose 1 ea PO BID levothyroxine 112 mcg PO QAM lorazepam 1 mg PO DAILY PRN omeprazole 20 mg PO DAILY oxybutynin chloride 5 mg PO TID [reusable underpad/chux As directed] simvastatin 20 mg PO BEDTIME umeclidinium 62.5 mcg/actuation (Incruse Ellipta) 1 inh PO DAILY Tobacco use date assessed: 07/14/23 HPI 3 mon F/U HPI Details 82-year-old female presents to the office to discuss her chronic medical conditions. Patient is at baseline state of health. She is compliant with all her medications and reporting no side effects. Able to function and do all activities of daily living. [facility] Medical History Breast calcification, left Obesity (BMI 30-39.9) Smoker Anxiety GERD (gastroesophageal reflux disease) Pure hypercholesterolemia Anxiety state, unspecified Overactive bladder Urge incontinence Current smoker Acquired hypothyroidism Chronic obstructive pulmonary disease, unspecified Borderline hypercholesterolemia Surgical History History of D&C Family History Father No problems noted. Mother No problems noted. Brother No problems noted. Social History Housing: Apartment Alcohol intake: never Patient Tobacco Use Status: Current everyday Tobacco user Tobacco use type: Cigarette Cigarette Packs Per Day: 0.5 Cigarettes Per Day: 15 e-Cigarette/Vaping Use: Never Used Second Hand Smoke Exposure: Yes service: No Current occupational status: disabled Cognitive needs: Yes (walker) Hearing needs: No Vision needs: Yes (Glasses) Questionnaire PHQ-9 Over the last 2 weeks, how often have you been bothered by any of the following problems? Depression Screening Interpretation: Negative Depression Screening Done: Yes Source: Developed by Drs. Justin Gutierrez, Star Pack and colleagues, with an educational krista from [employer]. Thrive Questionnaire Date Thrive assessed: 01/06/23 Currently or been in a relationship where the following occur: no concerns reported ZANA-7 AMB Questionnaire ZANA-7 Date ZANA - 7 assessed: 01/06/23 Source: Developed by Drs. Justin Gutierrez, Nicol Lorenzo, Star Arciniega and colleagues, with an educational krista from [employer]. Physical exam (Primary Care) Vital Signs: Last Vital Signs Pulse 105 H 07/14/23 09:20 BP 136/76 07/14/23 09:20 Pulse Ox 94 07/14/23 09:20 Oxygen Delivery Method Room Air 07/14/23 09:20 Care Plan Goal for BP management: Blood pressure is in range. Continue current medications. BMI result Body Mass Index 33.3 BMI Assessment/Plan discussion: High (1 lb per week weight loss suggested.) BMI High, discussed plan: lifestyle, weight reduction and dietary Tobacco/Smoking Status: Tobacco use Status Tobacco use date assessed 07/14/23 07/14/23 09:30 Patient Tobacco Use Status Current everyday Tobacco 07/14/23 09:30 Tobacco use type Cigarette 07/14/23 09:30 e-Cigarette/Vaping Use Never Used 07/14/23 09:30 Are you ready to quit: No Tobacco cessation counseling provided: Yes CPT code: Less than 3 minutes Depression Screening Interpretation: Negative Thrive Assessment: Date of Thrive Assessment Date Thrive assessed 01/06/23 07/14/23 09:30 Currently or been in a relationship where the following occur: no concerns reported Advance Care Planning discussion: Exists, not on file Date of discussion: 07/14/23 Forms completed: Health Care Proxy and MOLST Time spent: 1-15 minutes, not on file Const General: cooperative and healthy appearing Nutritional Appearance: well nourished Orientation/consciousness: patient oriented x3 Limitations: no limitations HENMT Head: Yes normal to inspection Eyes General: appearance normal, both eyes and all related structures Neck Neck: Yes normal visual inspection Chest Chest palpation & inspection: normal palpation of entire chest wall Resp Effort & Inspection: normal respiratory effort Neuro General: patient oriented x3 Assessment and Plan Assessment & Plan (1) Stage 1 chronic kidney disease: Code(s): N18.1 - Chronic kidney disease, stage 1 Plan: Blood work is being monitored. (2) Obesity (BMI 30-39.9): Code(s): E66.9 - Obesity, unspecified Plan: Counseling including diet and exercise suggested. (3) Smoker: Code(s): F17.200 - Nicotine dependence, unspecified, uncomplicated Plan: Patient strongly advised to quit smoking. Coding Level of Care Code Est Pt Level 4 (92419) Diagnoses Stage 1 chronic kidney disease N18.1 Obesity (BMI 30-39.9) E66.9 Smoker F17.200 Additional Codes Vital Signs *Quality* - Advance Care Planning discussion: Exists, not on file ([id number]) Vital Signs *Quality* - Time spent: 1-15 minutes, not on file ([id number])
[2023-07-14 09:20] VITALS: BP 136/76; PULSE 105; O2SAT 94; BMI 33.3
== END 2023-07-14 10:22 | disposition home or self-care (01) ==
PROVIDERS: PCP Internal Medicine; Visit Provider Internal Medicine
DX: N18.1 Chronic kidney disease, stage 1 (principal); E66.9 Obesity, unspecified; Z68.31 Body mass index [BMI] 31.0-31.9, adult; F17.210 Nicotine dependence, cigarettes, uncomplicated
CPT/HCPCS: 99214

== ENCOUNTER 2023-09-06 10:07 | Outpatient (REF) | payer OTHER, SELFPAY ==
--- NOTE | ~2023-09-06 | MM_ITS ---
EXAMINATION: MM SCREENING DIGITAL BREAST TOMOSYNTHESIS, BILATERAL CLINICAL INFORMATION: Screening. Asymptomatic. Prior benign biopsy left breast anterior. COMPARISON: Mammography: 07/23/2022, 03/17/2016, 05/02/2013, 02/10/2011. TECHNIQUE: Digital breast tomosynthesis is performed in both the craniocaudal and mediolateral oblique views along with computer-aided detection (CAD). Synthesized 2D images are generated from the tomosynthesis. Additional right MLO was also provided. FINDINGS: The breasts are almost entirely fatty (ACR BI-RADS breast composition Category a). Benign biopsy clip present in the most anterior periareolar left breast. There are no suspicious masses, suspicious grouped calcifications, or areas of architectural distortion in either breast. The parenchymal pattern is stable from prior exams. No skin or axillary abnormalities. MM/MM tomosynthesis screening BI IMPRESSION: No mammographic evidence of malignancy. ASSESSMENT: BI-RADS BI-RADS 2 - Benign Findings RECOMMENDATION: Routine annual mammography screening. 1 year F/U This examination should not preclude the clinical evaluation of a suspicious palpable abnormality. This patient's information was entered into a reminder system with a target due date for their next mammogram.
== END 2023-09-06 10:08 | disposition home or self-care (01) ==
LOC: HO.MAMMO 10:07
PROVIDERS: PCP Internal Medicine; Visit Provider Nurse Practitioner Family
DX: Z12.31 Encounter for screening mammogram for malignant neoplasm of breast (principal)
CPT/HCPCS: 77063; 77067

== ENCOUNTER → 2023-09-06 10:30 | Outpatient (BNV) | payer OTHER, SELFPAY | PROVIDERS: PCP Internal Medicine; Visit Provider Radiology Diagnostic Radiology | DX: Z12.31 Encounter for screening mammogram for malignant neoplasm of breast (principal) | CPT/HCPCS: 77063; 77067 ==

== ENCOUNTER 2023-11-17 09:33 | Outpatient (AMB) | payer OTHER, SELFPAY ==
--- NOTE | 2023-11-17 09:35 | MHC.PC.OV ---
Vital Signs 11/17/23 09:41 Height 5 ft 2.5 in Weight 177 lb 8 oz BMI 31.9 BP 132/72 Blood Pressure Location Lt brachial Position Sitting Pulse 85 Pulse Source Pulse Oximeter Pulse Oximetry (%) 95 Oxygen Delivery Method Room Air Intake Visit Reasons: 3 mth f/u Intake Note: Patient is here to follow up on GERD, COPD, Anxiety Hypercholesterolemia. Slitter And Rewinder Required: No Toll Transmission Worker: Not Required per policy Accompanied by: Self / Same As Patient Allergies No Known Allergies Allergy (Verified 11/17/23 10:11) Medication List - Last Reconciled 11/17/23 by James Del Toro MD albuterol sulfate 90 mcg/actuation 2 puffs inhalation Q6H PRN alendronate 70 mg PO QWEEK calcium carbonate-vitamin D3 500 mg-10 mcg (400 unit) 1 tab PO TID 90 days disposable gloves (Disposable Latex-Free Gloves) As directed fluticasone propion-salmeterol 250-50 mcg/dose 1 ea PO BID levothyroxine 112 mcg PO QAM lorazepam 1 mg PO DAILY PRN omeprazole 20 mg PO DAILY oxybutynin chloride 5 mg PO TID [reusable underpad/chux As directed] simvastatin 20 mg PO BEDTIME umeclidinium 62.5 mcg/actuation (Incruse Ellipta) 1 inh PO DAILY Tobacco use date assessed: 11/17/23 Fall risk assessment: No Falls in past year Last assessed Fall Risk: 11/17/23 Dental Screening Dental Screen Date: 11/17/23 Did you have a dental visit in the last 12 months?: No Did you have a dental problem in the last 6 months where you did not have access to dental care?: No Was dental information given to patient?: No HPI 3 mth f/u HPI Details 83-year-old female presents to the office to discuss her chronic medical conditions. [facility] Medical History (Updated 11/17/23 @ 10:10 by James Del Toro MD) Tobacco use disorder Breast calcification, left Obesity (BMI 30-39.9) Smoker Anxiety GERD (gastroesophageal reflux disease) Pure hypercholesterolemia Anxiety state, unspecified Overactive bladder Urge incontinence Acquired hypothyroidism Chronic obstructive pulmonary disease, unspecified Borderline hypercholesterolemia Surgical History History of D&C Family History Father No problems noted. Mother No problems noted. Brother No problems noted. Social History Housing: Apartment Alcohol intake: never Patient Tobacco Use Status: Current everyday Tobacco user Tobacco use type: Cigarette Cigarette Packs Per Day: 0.5 Cigarettes Per Day: 15 e-Cigarette/Vaping Use: Never Used Second Hand Smoke Exposure: Yes service: No Current occupational status: disabled Cognitive needs: Yes (walker) Hearing needs: No Vision needs: Yes (Glasses) Questionnaire PHQ-9 Over the last 2 weeks, how often have you been bothered by any of the following problems? 1. Little interest or pleasure in doing things: not at all 2. Feeling down, depressed, or hopeless: not at all 3. Trouble falling or staying asleep, or sleeping too much: not at all 4. Feeling tired or having little energy: not at all 5. Poor appetite or overeating: not at all 6. Feeling bad about yourself - or that you are a failure or have let yourself or your family down: not at all 7. Trouble concentrating on things, such as reading the newspaper or watching television: not at all 8. Moving or speaking so slowly that other people could have noticed. Or the opposite - being so fidgety or restless that you have been moving around a lot more than usual: not at all 9. Thoughts that you would be better off or of hurting yourself in some way: not at all Total score: 0 Depression Screening Interpretation: Negative Depression Screening Done: Yes Source: Developed by Drs. Justin Gutierrez, Nicol Lorenzo, Star Arciniega and colleagues, with an educational krista from [employer]. Thrive Questionnaire Date Thrive assessed: 11/17/23 I am a: Patient What is your living situation today?: I have a steady place to live Within the past 12 months, did the food you bought not last and you didn't have the money to get more?: Never true Within the past 12 months, did you worry whether your food would run out before you got money to buy more?: Never true Do you have trouble paying for medicines?: No Do you have trouble getting transportation to medical appointments?: No Do you have trouble paying your heating and electricity bill?: No Do you have trouble taking care of your child, family member or friend?: No Do you have trouble with day-to-day activities such as bathing, preparing meals, shopping, managing finances, etc.?: No Are you currently unemployed and looking for a job?: No Are you interested in more education?: No Currently or been in a relationship where the following occur: no concerns reported THRIVE Score: 0 AUDIT C Alcohol Use Questionnaire (AUDIT-C) 1. How often do you have a drink containing alcohol?: Never 2. How many drinks containing alcohol do you have on a typical day when you are drinking?: 1 or 2 3. How often do you have six or more drinks on one occasion?: Never Total Score: 0 ZANA-7 AMB Questionnaire ZANA-7 Date ZANA - 7 assessed: 01/06/23 Source: Developed by Drs. Justin Gutierrez, Nicol Lorenzo, Star Arciniega and colleagues, with an educational krista from [employer]. Physical exam (Primary Care) Vital Signs: Last Vital Signs Pulse 85 11/17/23 09:41 BP 132/72 11/17/23 09:41 Pulse Ox 95 11/17/23 09:41 Oxygen Delivery Method Room Air 11/17/23 09:41 BMI result Body Mass Index 31.9 Tobacco/Smoking Status: Tobacco use Status Tobacco use date assessed 11/17/23 11/17/23 09:47 Patient Tobacco Use Status Current everyday Tobacco 11/17/23 09:47 Tobacco use type Cigarette 11/17/23 09:47 e-Cigarette/Vaping Use Never Used 11/17/23 09:47 PHQ-9: PHQ-9 Score PHQ-9: Total score 0 11/17/23 10:11 Depression Screening Interpretation: Negative Thrive Assessment: Date of Thrive Assessment Date Thrive assessed 11/17/23 11/17/23 09:47 Currently or been in a relationship where the following occur: no concerns reported Const General: cooperative and healthy appearing Nutritional Appearance: well nourished Orientation/consciousness: patient oriented x3 Limitations: no limitations HENMT Head: Yes normal to inspection Eyes General: appearance normal, both eyes and all related structures Neck Neck: Yes normal visual inspection Chest Chest palpation & inspection: normal palpation of entire chest wall Resp Effort & Inspection: normal respiratory effort Neuro General: patient oriented x3 Assessment and Plan Assessment & Plan (1) Stage 1 chronic kidney disease: Code(s): N18.1 - Chronic kidney disease, stage 1 Plan: Condition is stable. Blood work has been ordered. (2) Obesity (BMI 30-39.9): Code(s): E66.9 - Obesity, unspecified (3) Chronic obstructive pulmonary disease, unspecified: Code(s): J44.9 - Chronic obstructive pulmonary disease, unspecified Qualifiers: COPD type: unspecified COPD Qualified Code(s): J44.9 - Chronic obstructive pulmonary disease, unspecified Plan: Continue current inhalers. (4) Mild anxiety: Code(s): F41.9 - Anxiety disorder, unspecified Plan: Prescription for lorazepam ordered. Orders: Orders Basic Metabolic Panel Today E66.9 - Obesity, unspecified, F17.200 - Nicotine dependence, unspecified, uncomplicated, J44.9 - Chronic obstructive pulmonary disease, unspecified, N18.1 - Chronic kidney disease, stage 1 Complete Blood Count no Diff Today E66.9 - Obesity, unspecified, F17.200 - Nicotine dependence, unspecified, uncomplicated, J44.9 - Chronic obstructive pulmonary disease, unspecified, N18.1 - Chronic kidney disease, stage 1 Thyroid Stimulating Hormone Today E66.9 - Obesity, unspecified, F17.200 - Nicotine dependence, unspecified, uncomplicated, J44.9 - Chronic obstructive pulmonary disease, unspecified, N18.1 - Chronic kidney disease, stage 1 UA and rflx microscopic Today E66.9 - Obesity, unspecified, F17.200 - Nicotine dependence, unspecified, uncomplicated, J44.9 - Chronic obstructive pulmonary disease, unspecified, N18.1 - Chronic kidney disease, stage 1 Liver Panel Today E66.9 - Obesity, unspecified, F17.200 - Nicotine dependence, unspecified, uncomplicated, J44.9 - Chronic obstructive pulmonary disease, unspecified, N18.1 - Chronic kidney disease, stage 1 Lipid Panel Today E66.9 - Obesity, unspecified, F17.200 - Nicotine dependence, unspecified, uncomplicated, J44.9 - Chronic obstructive pulmonary disease, unspecified, N18.1 - Chronic kidney disease, stage 1 Medications: Refilled lorazepam 1 mg PO DAILY PRN 15 tabs 1RF anxiety Coding Level of Care Code Est Pt Level 4 (42754) Diagnoses Stage 1 chronic kidney disease N18.1 Obesity (BMI 30-39.9) E66.9 Chronic obstructive pulmonary disease, unspecified COPD type J44.9 COPD type: unspecified COPD Mild anxiety F41.9
[2023-11-17 09:41] VITALS: BP 132/72; PULSE 85; O2SAT 95; BMI 31.9
== END 2023-11-17 10:08 | disposition home or self-care (01) ==
PROVIDERS: PCP Internal Medicine; Visit Provider Internal Medicine
DX: N18.1 Chronic kidney disease, stage 1 (principal); J44.9 Chronic obstructive pulmonary disease, unspecified; F41.9 Anxiety disorder, unspecified
CPT/HCPCS: 99214

== ENCOUNTER 2023-11-22 08:32 | Outpatient (REF) | payer OTHER, SELFPAY ==
[2023-11-22 09:25] LABS: Hematocrit 34.9 % (37.0-47.0); Hemoglobin 11.3 g/dl (12.0-16.0); Mean Corpuscular HGB Conc 32.4 g/dl (31.0-35.0); Mean Corpuscular Hemoglobin 31.1 pg (27.0-33.0); Mean Corpuscular Volume 96.1 fL (80.0-98.0); Mean Platelet Volume 9.9 fL (9.4-12.3); Platelet Count 242 X10*3/uL (160-400); Red Blood Count 3.63 X10*6/uL (4.20-5.50); Red Cell Distribution Width 13.4 % (11.0-16.0); White Blood Count 6.7 X10*3/uL (4.8-10.8)
[2023-11-22 10:04] LABS: Alanine Aminotransferase 6 U/L (0-31); Albumin Level 3.5 g/dL (3.5-5.0); Alkaline Phosphatase 67 U/L (39-117); Anion Gap 9 (12-20); Aspartate Amino Transferase 11 U/L (5-31); Bilirubin Direct 0.1 mg/dL (0.0-0.5); Bilirubin Total 0.3 mg/dL (0.0-1.0); Blood Urea Nitrogen 21 mg/dL (9-16); Calcium 9.2 mg/dL (8.4-10.2); Carbon Dioxide 30 mmol/L (22-29); Chloride 104 mmol/L (96-108); Cholesterol 105 mg/dL (<200); Estimated Glomerular Filt Rate 31; Glucose Random 92 mg/dL (60-115); HDL Cholesterol 33 mg/dL (>40); LDL Cholesterol Calculated 49 mg/dL (<100); Potassium 4.3 mmol/L (3.3-5.1); Sodium 139 mmol/L (135-145); Total Protein 7.6 g/dL (6.5-8.0); Triglycerides 118 mg/dL (<150)
[2023-11-22 10:21] LABS: Thyroid Stimulating Hormone 1.05 uIU/mL (0.32-4.0)
== END 2023-11-22 08:33 | disposition home or self-care (01) ==
LOC: HO.LAB 08:32
PROVIDERS: PCP Internal Medicine; Visit Provider Internal Medicine
DX: N18.1 Chronic kidney disease, stage 1 (principal); E66.9 Obesity, unspecified; J44.9 Chronic obstructive pulmonary disease, unspecified; F17.200 Nicotine dependence, unspecified, uncomplicated
CPT/HCPCS: 36415; 80048; 80061; 80076; 84443; 85027

== ENCOUNTER 2023-11-24 08:21 | Outpatient (REF) | payer OTHER, SELFPAY ==
[2023-11-24 08:30] LABS: Appearance Urine Clear; Color Urine Yellow; Glucose Urine UA Negative (Negative); Leukocyte Esterase Urine Negative (Negative); Nitrite Urine Negative (Negative); Specific Gravity - Urine 1.015 (1.005-1.025); Urine Blood Negative (Negative); Urine Ketones Negative (Negative); Urine Protein Negative (Neg-Trace)
== END 2023-11-24 08:22 | disposition home or self-care (01) ==
LOC: HO.LNP 08:21
PROVIDERS: Visit Provider Internal Medicine
DX: N18.1 Chronic kidney disease, stage 1 (principal); E66.9 Obesity, unspecified; J44.9 Chronic obstructive pulmonary disease, unspecified; F17.200 Nicotine dependence, unspecified, uncomplicated
CPT/HCPCS: 81003

== ENCOUNTER 2024-03-01 08:38 | Outpatient (AMB) | payer OTHER, SELFPAY ==
--- NOTE | 2024-03-01 08:40 | MHC.PC.OV ---
Vital Signs 03/01/24 08:42 Height 5 ft 2.5 in Weight 185 lb 4 oz BMI 33.3 BP 138/72 Blood Pressure Location Lt brachial Position Sitting Pulse 79 Pulse Source Pulse Oximeter Pulse Oximetry (%) 95 Oxygen Delivery Method Room Air Intake Visit Reasons: 3MTH F/U Intake Note: Patient is here to follow up on COPD, Hypercholesterolemia, Hypothyroidism. 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: Not Required per policy Accompanied by: Self / Same As Patient Allergies No Known Allergies Allergy (Verified 03/01/24 08:42) Tobacco use date assessed: 03/01/24 Fall risk assessment: No Falls in past year Last assessed Fall Risk: 03/01/24 Dental Screening Dental Screen Date: 11/17/23 [facility] Medical History (Updated 11/17/23 @ 10:10 by James Del Toro MD) Tobacco use disorder Breast calcification, left Obesity (BMI 30-39.9) Anxiety GERD (gastroesophageal reflux disease) Pure hypercholesterolemia Anxiety state, unspecified Overactive bladder Urge incontinence Acquired hypothyroidism Chronic obstructive pulmonary disease, unspecified Borderline hypercholesterolemia Surgical History History of D&C Family History Father No problems noted. Mother No problems noted. Brother No problems noted. Social History Housing: Apartment Alcohol intake: never Patient Tobacco Use Status: Current everyday Tobacco user Tobacco use type: Cigarette Cigarette Packs Per Day: 0.5 Cigarettes Per Day: 15 e-Cigarette/Vaping Use: Never Used Second Hand Smoke Exposure: Yes service: No Current occupational status: disabled Cognitive needs: Yes (walker) Hearing needs: No Vision needs: Yes (Glasses) Questionnaire Thrive Questionnaire Date Thrive assessed: 11/17/23 ZANA-7 AMB Questionnaire ZANA-7 Date ZANA - 7 assessed: 01/06/23 Source: Developed by Drs. Justin Gutierrez, Nicol Lorenzo, Star Arciniega and colleagues, with an educational krista from [employer]. Physical exam (Primary Care) Vital Signs: Last Vital Signs Pulse 79 03/01/24 08:42 BP 138/72 03/01/24 08:42 Pulse Ox 95 03/01/24 08:42 Oxygen Delivery Method Room Air 03/01/24 08:42 Care Plan Goal for BP management: Blood pressure is in range. BMI result Body Mass Index 33.3 BMI Assessment/Plan discussion: High (1 lb per week weight loss suggested.) Tobacco/Smoking Status: Tobacco use Status Tobacco use date assessed 03/01/24 03/01/24 08:50 Patient Tobacco Use Status Current everyday Tobacco 03/01/24 08:50 Tobacco use type Cigarette 03/01/24 08:50 e-Cigarette/Vaping Use Never Used 03/01/24 08:50 Thrive Assessment: Date of Thrive Assessment Date Thrive assessed 11/17/23 03/01/24 08:50 Date of discussion: 03/01/24 Who was present: Patient Forms completed: Health Care Proxy and [facility] Actual minutes spent: 5 Const General: cooperative and healthy appearing Nutritional Appearance: well nourished Orientation/consciousness: patient oriented x3 Limitations: no limitations HENMT Head: Yes normal to inspection Eyes General: appearance normal, both eyes and all related structures Neck Neck: Yes normal visual inspection Chest Chest palpation & inspection: normal palpation of entire chest wall Resp Effort & Inspection: normal respiratory effort Neuro General: patient oriented x3 Assessment and Plan Assessment & Plan (1) Tobacco use disorder: Code(s): F17.200 - Nicotine dependence, unspecified, uncomplicated Plan: Counseling to quit smoking done. 15 minutes spent advising the patient the dangers of smoking. (2) Stage 1 chronic kidney disease: Code(s): N18.1 - Chronic kidney disease, stage 1 Plan: Kidney functions appear to be stable. We will repeat blood work in 3 months. (3) Osteoporosis: Code(s): M81.0 - Age-related osteoporosis without current pathological fracture Qualifiers: Osteoporosis type: age-related Presence of current pathological fracture: without current pathological fracture Qualified Code(s): M81.0 - Age-related osteoporosis without current pathological fracture Plan: Continue current medications. (4) Acquired hypothyroidism: Code(s): E03.9 - Hypothyroidism, unspecified Plan: TSH is in range. Medications: Refilled alendronate 70 mg PO QWEEK 12 tabs 0RF Coding Level of Care Code Est Pt Level 4 (36461) Complex EM visit Add On G2211 Diagnoses Tobacco use disorder F17.200 Stage 1 chronic kidney disease N18.1 Age-related osteoporosis without current pathological fracture M81.0 Osteoporosis type: age-related Presence of current pathological fracture: without current pathological fracture Acquired hypothyroidism E03.9
[2024-03-01 08:42] VITALS: BP 138/72; PULSE 79; O2SAT 95; BMI 33.3
== END 2024-03-01 09:16 | disposition home or self-care (01) ==
LOC: HO.HMGH 08:38
PROVIDERS: PCP Internal Medicine; Visit Provider Internal Medicine
DX: F17.200 Nicotine dependence, unspecified, uncomplicated (principal); N18.1 Chronic kidney disease, stage 1; M81.0 Age-related osteoporosis without current pathological fracture; E03.9 Hypothyroidism, unspecified
CPT/HCPCS: 99214; G2211

== ENCOUNTER 2024-06-07 08:46 | Outpatient (AMB) | payer OTHER, SELFPAY ==
--- NOTE | 2024-06-07 08:53 | MHC.PC.OV ---
Vital Signs 06/07/24 08:55 Height 5 ft 2.5 in Weight 173 lb 6 oz BMI 31.2 BP 140/80 H Blood Pressure Location Lt brachial Position Sitting Pulse 100 Pulse Source Pulse Oximeter Pulse Oximetry (%) 93 Oxygen Delivery Method Room Air Intake Visit Reasons: 6 Month F/U Intake Note: Patient is here to follow up on COPD, Hypercholesterolemia, Hypothyroidism.. Production Dispatcher Required: No Handy Man: Not Required per policy Accompanied by: Self / Same As Patient Allergies No Known Allergies Allergy (Verified 06/07/24 09:44) Medication List - Last Reconciled 06/07/24 by James Del Toro MD albuterol sulfate 90 mcg/actuation 2 puffs inhalation Q6H PRN alendronate 70 mg PO QWEEK calcium carbonate-vitamin D3 500 mg-10 mcg (400 unit) 1 tab PO TID 90 days disposable gloves (Disposable Latex-Free Gloves) As directed fluticasone propion-salmeterol 250-50 mcg/dose 1 ea PO BID levothyroxine 112 mcg PO QAM lorazepam 1 mg PO DAILY PRN omeprazole 20 mg PO DAILY oxybutynin chloride 5 mg PO TID [reusable underpad/chux As directed] simvastatin 20 mg PO BEDTIME umeclidinium 62.5 mcg/actuation (Incruse Ellipta) 1 inh PO DAILY Tobacco use date assessed: 06/07/24 Fall risk assessment: No Falls in past year Last assessed Fall Risk: 06/07/24 Dental Screening Dental Screen Date: 11/17/23 HPI 6 Month F/U HPI Details 83-year-old female presents to the office to discuss her chronic medical conditions. Patient comes in using a walker to ambulate. Patient is at baseline state of health. Able to function and do activities of daily living. Continues to smoke. Compliant with all her medications. Reports no urinary incontinence. Sleeping well at night. Patient has an attendant who helps her with grocery shopping and all outdoor activities including driving. She is able to keep control of her finances independently. [facility] Medical History Tobacco use disorder Breast calcification, left Obesity (BMI 30-39.9) Anxiety GERD (gastroesophageal reflux disease) Pure hypercholesterolemia Anxiety state, unspecified Overactive bladder Urge incontinence Acquired hypothyroidism Chronic obstructive pulmonary disease, unspecified Borderline hypercholesterolemia Surgical History History of D&C Family History Father No problems noted. Mother No problems noted. Brother No problems noted. Social History Housing: Apartment Alcohol intake: never Patient Tobacco Use Status: Current everyday Tobacco user Tobacco use type: Cigarette Cigarette Packs Per Day: 0.5 Cigarettes Per Day: 15 e-Cigarette/Vaping Use: Never Used Second Hand Smoke Exposure: Yes service: No Current occupational status: disabled Cognitive needs: Yes (walker) Hearing needs: No Vision needs: Yes (Glasses) Questionnaire Thrive Questionnaire Date Thrive assessed: 11/17/23 Are you currently unemployed and looking for a job?: No ZANA-7 AMB Questionnaire ZANA-7 Date ZANA - 7 assessed: 06/07/24 Feeling nervous, anxious, or on edge: 0 = Not at all Not being able to stop or control worryin = Not at all Worrying too much about different things: 0 = Not at all Trouble relaxin = Not at all Being so restless that it is hard to sit still: 0 = Not at all Becoming easily annoyed or irritable: 0 = Not at all Feeling afraid as if something awful might happen: 0 = Not at all Total ZANA-7 score (0-4 normal; 5-9 mild; 10-14 moderate; 15-21 severe): 0 Source: Developed by Drs. Justin Gutierrez, Nicol Lorenzo, Star Arciniega and colleagues, with an educational krista from [employer]. Physical exam (Primary Care) Vital Signs: Last Vital Signs Pulse 100 06/07/24 08:55 BP 140/80 H 06/07/24 08:55 Pulse Ox 93 06/07/24 08:55 Oxygen Delivery Method Room Air 06/07/24 08:55 Care Plan Goal for BP management: Blood pressure is in range. BMI result Body Mass Index 31.2 Tobacco/Smoking Status: Tobacco use Status Tobacco use date assessed 06/07/24 06/07/24 09:13 Patient Tobacco Use Status Current everyday Tobacco 06/07/24 09:13 Tobacco use type Cigarette 06/07/24 09:13 e-Cigarette/Vaping Use Never Used 06/07/24 09:13 Thrive Assessment: Date of Thrive Assessment Date Thrive assessed 11/17/23 06/07/24 09:13 Const General: cooperative and healthy appearing Nutritional Appearance: well nourished Orientation/consciousness: patient oriented x3 Limitations: no limitations HENMT Head: Yes normal to inspection Eyes General: appearance normal, both eyes and all related structures Neck Neck: Yes normal visual inspection Chest Chest palpation & inspection: normal palpation of entire chest wall Resp Effort & Inspection: normal respiratory effort Neuro General: patient oriented x3 Office Procedures Flu Questionnaire Does the patient have a severe egg allergy?: No Does the patient have severe life threatening allergies?: No Does the patient have a fever or illness today?: No Has the patient ever had Guillain-[place] Syndrome?: No Has the patient ever had any past reaction to a flu shot?: No Immunizations Fluarix Triv [id number] (PF) 45 mcg (15 mcg x 3)/0.5 mL IM syringe Performing Provider: James Del Toro MD [facility] Administered by: Sunni Arriaga LPN on 06/07/24 09:20 Dose Route Admin Location Dispensed Lot Number Expiration Date NDC Card Writer Hand 0.5 mL IM Left Deltoid 0.5 mL [id number] 03/04/25 81280-389-72 [employer] VIS Given Date VIS Provided VIS Publication Date 06/07/24 Single Vaccine 21 Eligibility Eligibility Date Funding Source Not [facility] Eligible 06/07/24 Private Coding Level of Care Code Est Pt Level 4 (79153) Complex EM visit Add On G2211 Diagnoses Stage 1 chronic kidney disease N18.1 Obesity (BMI 30-39.9) E66.9 Anxiety F41.9 Pure hypercholesterolemia E78.00 Assessment & Plan Assessment & Plan (1) Stage 1 chronic kidney disease: Code(s): N18.1 - Chronic kidney disease, stage 1 Category: Medical Plan: Blood work has been ordered. (2) Obesity (BMI 30-39.9): Code(s): E66.9 - Obesity, unspecified Category: Medical Plan: Counseling on the importance of diet and exercise done. (3) Anxiety: Code(s): F41.9 - Anxiety disorder, unspecified Category: Medical Plan: Condition is stable. (4) Pure hypercholesterolemia: Code(s): E78.00 - Pure hypercholesterolemia, unspecified Category: Medical Plan: Blood work has been ordered. Will call with results. Plan Patient was counseled on the dangers of smoking. Orders: Orders Lipid Panel Today E66.9 - Obesity, unspecified, E78.00 - Pure hypercholesterolemia, unspecified, F41.9 - Anxiety disorder, unspecified, N18.1 - Chronic kidney disease, stage 1 Thyroid Stimulating Hormone Today E66.9 - Obesity, unspecified, E78.00 - Pure hypercholesterolemia, unspecified, F41.9 - Anxiety disorder, unspecified, N18.1 - Chronic kidney disease, stage 1 UA and rflx microscopic Today E66.9 - Obesity, unspecified, E78.00 - Pure hypercholesterolemia, unspecified, F41.9 - Anxiety disorder, unspecified, N18.1 - Chronic kidney disease, stage 1 Influenza [id number] Immunization Today Z23 - Encounter for immunization Basic Metabolic Panel Today E66.9 - Obesity, unspecified, E78.00 - Pure hypercholesterolemia, unspecified, F41.9 - Anxiety disorder, unspecified, N18.1 - Chronic kidney disease, stage 1 Complete Blood Count no Diff Today E66.9 - Obesity, unspecified, E78.00 - Pure hypercholesterolemia, unspecified, F41.9 - Anxiety disorder, unspecified, N18.1 - Chronic kidney disease, stage 1 Liver Panel Today E66.9 - Obesity, unspecified, E78.00 - Pure hypercholesterolemia, unspecified, F41.9 - Anxiety disorder, unspecified, N18.1 - Chronic kidney disease, stage 1
[2024-06-07 08:55] VITALS: BP 140/80; PULSE 100; O2SAT 93; BMI 31.2
== END 2024-06-07 09:42 | disposition home or self-care (01) ==
PROVIDERS: PCP Internal Medicine; Visit Provider Internal Medicine
DX: N18.1 Chronic kidney disease, stage 1 (principal); E66.811 Obesity, class 1; Z68.31 Body mass index [BMI] 31.0-31.9, adult; F41.9 Anxiety disorder, unspecified; Z23 Encounter for immunization; E78.00 Pure hypercholesterolemia, unspecified

== ENCOUNTER → 2024-06-07 08:46 | Outpatient (BNVA) | payer OTHER, SELFPAY | PROVIDERS: PCP Internal Medicine; Visit Provider Internal Medicine | DX: Z23 Encounter for immunization (principal); N18.1 Chronic kidney disease, stage 1; E66.9 Obesity, unspecified; F41.9 Anxiety disorder, unspecified; E78.00 Pure hypercholesterolemia, unspecified | CPT/HCPCS: 90471; 90656; 99212 ==

== ENCOUNTER 2024-06-12 08:22 | Outpatient (REF) | payer OTHER, SELFPAY ==
[2024-06-12 09:14] LABS: Mean Corpuscular HGB Conc 32.3 g/dl (31.0-35.0); Mean Corpuscular Hemoglobin 31.1 pg (27.0-33.0); Mean Corpuscular Volume 96.3 fL (80.0-98.0); Mean Platelet Volume 10.2 fL (9.4-12.3); Platelet Count 216 X10*3/uL (160-400); Red Blood Count 3.22 X10*6/uL (4.20-5.50); Red Cell Distribution Width 14.1 % (11.0-16.0); White Blood Count 6.7 X10*3/uL (4.8-10.8)
[2024-06-12 09:51] LABS: Alanine Aminotransferase 6 U/L (0-31); Albumin Level 3.4 g/dL (3.5-5.0); Alkaline Phosphatase 73 U/L (39-117); Anion Gap 10 (12-20); Aspartate Amino Transferase 9 U/L (5-31); Bilirubin Direct 0.2 mg/dL (0.0-0.5); Bilirubin Total 0.2 mg/dL (0.0-1.0); Blood Urea Nitrogen 19 mg/dL (9-16); Carbon Dioxide 29 mmol/L (22-29); Chloride 105 mmol/L (96-108); Cholesterol 106 mg/dL (<200); Estimated Glomerular Filt Rate 30; Glucose Random 98 mg/dL (60-115); HDL Cholesterol 34 mg/dL (>40); LDL Cholesterol Calculated 58 mg/dL (<100); Potassium 4.1 mmol/L (3.3-5.1); Sodium 140 mmol/L (135-145); Total Protein 7.2 g/dL (6.5-8.0); Triglycerides 73 mg/dL (<150)
[2024-06-12 10:06] LABS: Thyroid Stimulating Hormone 0.81 uIU/mL (0.32-4.0)
== END 2024-06-12 08:23 | disposition home or self-care (01) ==
LOC: HO.LAB 08:22
PROVIDERS: PCP Internal Medicine; Visit Provider Internal Medicine
DX: N18.1 Chronic kidney disease, stage 1 (principal); E66.9 Obesity, unspecified; F41.9 Anxiety disorder, unspecified; E78.00 Pure hypercholesterolemia, unspecified
CPT/HCPCS: 36415; 80048; 80061; 80076; 84443; 85027

== ENCOUNTER 2024-06-13 09:17 | Outpatient (REF) | payer OTHER, SELFPAY ==
[2024-06-13 09:26] LABS: Appearance Urine Cloudy; Color Urine Yellow; Glucose Urine UA Negative (Negative); Leukocyte Esterase Urine Trace (Negative); Nitrite Urine Negative (Negative); PH 5.5 (5.0-9.0); UMIC TRIGGER UA YES; Urine Blood Negative (Negative); Urine Ketones Negative (Negative); Urine Protein Trace mg/dL (Neg-Trace)
[2024-06-13 09:38] LABS: Bacteria Urine 1+ (None Seen); Hyaline Casts Urine 0-2 /LPF (0-2); RBC Urine 0-2 /HPF (0-2); WBC Urine 0-5 /HPF (0-5)
== END 2024-06-13 09:18 | disposition home or self-care (01) ==
LOC: HO.LNP 09:17
PROVIDERS: Visit Provider Internal Medicine
DX: N18.1 Chronic kidney disease, stage 1 (principal); E66.9 Obesity, unspecified; F41.9 Anxiety disorder, unspecified; E78.00 Pure hypercholesterolemia, unspecified
CPT/HCPCS: 81001

== ENCOUNTER 2025-01-03 08:53 | Outpatient (AMB) | payer OTHER, SELFPAY ==
--- NOTE | 2025-01-03 08:56 | MHC.PC.OV ---
Vital Signs 01/03/25 08:59 Height 5 ft 2.5 in Weight 178 lb 6 oz BMI 32.1 BP 140/84 H Blood Pressure Location Lt brachial Position Sitting Pulse 101 H Pulse Source Pulse Oximeter Temp 97.1 F Temp Source Temporal Artery Scan Pulse Oximetry (%) 98 Oxygen Delivery Method Room Air Intake Visit Reasons: 6 month f/u Intake Note: Patient is here to follow up on COPD, CKD, Hypothyroidism. Education Professor Required: No Housing Management Officer: Not Required per policy Accompanied by: Self / Same As Patient Allergies No Known Allergies Allergy (Verified 01/03/25 09:13) Medication List - Last Reconciled 01/03/25 by James Del Toro MD albuterol sulfate 90 mcg/actuation 2 puffs inhalation Q6H PRN alendronate 70 mg PO QWEEK calcium carbonate-vitamin D3 500 mg-10 mcg (400 unit) 1 tab PO TID 90 days disposable gloves (Disposable Latex-Free Gloves) As directed fluticasone propion-salmeterol 250-50 mcg/dose 1 ea PO BID levothyroxine 112 mcg PO QAM lorazepam 1 mg PO DAILY PRN omeprazole 20 mg PO DAILY oxybutynin chloride 5 mg PO TID [reusable underpad/chux As directed] simvastatin 20 mg PO BEDTIME umeclidinium 62.5 mcg/actuation (Incruse Ellipta) 1 inh PO DAILY Tobacco use date assessed: 01/03/25 Fall risk assessment: 1 Fall in past year (01/03/25) Last assessed Fall Risk: 01/03/25 Dental Screening Dental Screen Date: 01/03/25 Did you have a dental visit in the last 12 months?: No Did you have a dental problem in the last 6 months where you did not have access to dental care?: No Was dental information given to patient?: No [facility] Medical History Tobacco use disorder Breast calcification, left Obesity (BMI 30-39.9) Anxiety GERD (gastroesophageal reflux disease) Pure hypercholesterolemia Anxiety state, unspecified Overactive bladder Urge incontinence Acquired hypothyroidism Chronic obstructive pulmonary disease, unspecified Borderline hypercholesterolemia Surgical History History of D&C Family History Father No problems noted. Mother No problems noted. Brother No problems noted. Social History Housing: Apartment Alcohol intake: never Patient Tobacco Use Status: Current everyday Tobacco user Tobacco use type: Cigarette Cigarette Packs Per Day: 0.5 Cigarettes Per Day: 9 e-Cigarette/Vaping Use: Never Used Second Hand Smoke Exposure: Yes service: No Current occupational status: disabled Cognitive needs: Yes (walker) Hearing needs: No Vision needs: Yes (Glasses) Questionnaire PHQ-9 Over the last 2 weeks, how often have you been bothered by any of the following problems? 1. Little interest or pleasure in doing things: not at all 2. Feeling down, depressed, or hopeless: not at all 3. Trouble falling or staying asleep, or sleeping too much: not at all 4. Feeling tired or having little energy: not at all 5. Poor appetite or overeating: not at all 6. Feeling bad about yourself - or that you are a failure or have let yourself or your family down: not at all 7. Trouble concentrating on things, such as reading the newspaper or watching television: not at all 8. Moving or speaking so slowly that other people could have noticed. Or the opposite - being so fidgety or restless that you have been moving around a lot more than usual: not at all 9. Thoughts that you would be better off or of hurting yourself in some way: not at all Total score: 0 Depression Screening Interpretation: Negative Depression Screening Done: Yes Source: Developed by Drs. Justin Gutierrez, Nicol Lorenzo, Star Arciniega and colleagues, with an educational krista from [employer]. Thrive Questionnaire Date Thrive assessed: 01/03/25 I am a: Patient What is your living situation today?: I have a steady place to live Within the past 12 months, did the food you bought not last and you didn't have the money to get more?: Never true Within the past 12 months, did you worry whether your food would run out before you got money to buy more?: Never true Do you have trouble paying for medicines?: No Do you have trouble getting transportation to medical appointments?: No Do you have trouble paying your heating and electricity bill?: No Do you have trouble taking care of your child, family member or friend?: No Do you have trouble with day-to-day activities such as bathing, preparing meals, shopping, managing finances, etc.?: No Are you currently unemployed and looking for a job?: No Are you interested in more education?: No Please select the resources that you would like help with: None Currently or been in a relationship where the following occur: No concerns reported THRIVE Score: 0 AUDIT C Alcohol Use Questionnaire (AUDIT-C) 1. How often do you have a drink containing alcohol?: Never Total Score: 0 ZANA-7 AMB Questionnaire ZANA-7 Date ZANA - 7 assessed: 01/03/25 Feeling nervous, anxious, or on edge: 0 = Not at all Not being able to stop or control worryin = Not at all Worrying too much about different things: 0 = Not at all Trouble relaxin = Not at all Being so restless that it is hard to sit still: 0 = Not at all Becoming easily annoyed or irritable: 0 = Not at all Feeling afraid as if something awful might happen: 0 = Not at all Total ZANA-7 score (0-4 normal; 5-9 mild; 10-14 moderate; 15-21 severe): 0 Source: Developed by Drs. Justin Gutierrez, Nicol Lorenzo, Star Arciniega and colleagues, with an educational krista from [employer]. Physical exam (Primary Care) Vital Signs: Last Vital Signs Temp 97.1 F 01/03/25 08:59 Pulse 101 H 01/03/25 08:59 BP 140/84 H 01/03/25 08:59 Pulse Ox 98 01/03/25 08:59 Oxygen Delivery Method Room Air 01/03/25 08:59 Care Plan Goal for BP management: BP is in range. BMI result Body Mass Index 32.1 BMI Assessment/Plan discussion: High Tobacco/Smoking Status: Tobacco use Status Tobacco use date assessed 01/03/25 01/03/25 09:07 Patient Tobacco Use Status Current everyday Tobacco 01/03/25 09:07 Tobacco use type Cigarette 01/03/25 09:07 e-Cigarette/Vaping Use Never Used 01/03/25 09:07 Are you ready to quit: No Tobacco cessation counseling provided: Yes CPT code: Less than 3 minutes PHQ-9: PHQ-9 Score PHQ-9: Total score 0 01/03/25 09:07 Depression Screening Interpretation: Negative Thrive Assessment: Date of Thrive Assessment Date Thrive assessed 01/03/25 01/03/25 09:07 Currently or been in a relationship where the following occur: No concerns reported Advance Care Planning discussion: Exists, not on file Date of discussion: 01/03/25 Forms completed: Health Care Proxy and [facility] Coding Level of Care Code Est Pt Level 4 (96786) Complex EM visit Add On G2211 Diagnoses Anxiety F41.9 Chronic obstructive pulmonary disease, unspecified COPD type J44.9 COPD type: unspecified COPD Additional Codes Vital Signs *Quality* - Advance Care Planning discussion: Exists, not on file ([id number]) Assessment & Plan Assessment & Plan (1) Anxiety: Code(s): F41.9 - Anxiety disorder, unspecified Category: Medical Plan: Condition is stable on medications prescribed. (2) Chronic obstructive pulmonary disease, unspecified: Code(s): J44.9 - Chronic obstructive pulmonary disease, unspecified Category: Medical Qualifiers: COPD type: unspecified COPD Qualified Code(s): J44.9 - Chronic obstructive pulmonary disease, unspecified Plan: Condition is exacerbated by her continuing to smoke. Counselling done. Plan History of Present Illness The patient is an 84-year-old female presenting with anxiety. In the context of this visit, a prescription of alprazolam for anxiety management was discussed. Additionally, she reports chronic COPD, worsened by her smoking habit. While she has been using inhalers effectively, her pulmonary condition remains an ongoing concern. Earlier today, she fell while attempting to stand. Emergency services were required as she was unable to return to her feet unaided. No specific complaints of injury were noted, although she described feeling shaky following the incident. Social History - Smoking history: The patient continues to smoke, which impacts her respiratory condition. - Recreational activity: The patient expressed interest in engaging in social activities like bingo. - Mobility: The recent need for emergency assistance highlights functional status concerns. Review of Systems - Respiratory: Reports shortness of breath and wheezing. - Musculoskeletal: Reports recent fall but denies specific injuries. - General: Reports anxiety. Physical Exam General: Cooperative and healthy appearing Nutritional Appearance: Well nourished Orientation/consciousness: Patient oriented x3 Limitations: No limitations Head: Normal to inspection General: Appearance normal, both eyes and all related structures Neck: Normal visual inspection Chest: Normal palpation of entire chest wall Respiratory: Wheezing in lungs ormal respiratory effort Neurology: Patient oriented x3, a little shaky after fall Results Plan - Check on alprazolam prescription status for anxiety management. - Prioritize smoking cessation to improve respiratory condition. - Encourage proper usage of inhalers for COPD management. - Monitor for any post-fall complications or symptoms. - Schedule and complete blood work prior to the next visit in April. Patient was informed and verbally consented to the use of an ambient scribe for clinic note documentation during this visit. Discussion Notes During the visit, I discussed with the patient the continuation of her alprazolam prescription for anxiety. I reinforced the need to consider smoking cessation critically, given its impact on her COPD and overall respiratory health. We addressed proper inhaler usage, ensuring she understands the importance of consistent and correct use. I informed her of the necessity to monitor for any symptoms following her fall. Blood work was discussed and will be scheduled prior to her next visit, allowing for comprehensive follow-up. I emphasized the importance of pursuing social engagements to potentially mitigate anxiety. Patient Instructions - Fill and start using the prescribed alprazolam for anxiety as directed. - Avoid smoking; explore options to help quit. - Use your inhaler regularly as prescribed, especially when experiencing shortness of breath. - Be cautious of any symptoms following your recent fall; seek help if anything concerning arises. - Get blood work done before your next appointment in April. - Consider engaging in social activities like bingo for social and mental well-being. Medications: Refilled albuterol sulfate 90 mcg/actuation 2 puffs inhalation Q6H PRN 8.5 grams 1RF shortness of breath or wheezing J44.9 - Chronic obstructive pulmonary disease, unspecified
[2025-01-03 08:59] VITALS: BP 140/84; PULSE 101; TEMP 36.2; O2SAT 98; BMI 32.1
== END 2025-01-03 09:15 | disposition home or self-care (01) ==
LOC: HO.HMCH 08:54
PROVIDERS: PCP Internal Medicine; Visit Provider Internal Medicine
DX: F41.9 Anxiety disorder, unspecified (principal); J44.9 Chronic obstructive pulmonary disease, unspecified; Z00.00 Encounter for general adult medical examination without abnormal findings

== ENCOUNTER → 2025-01-03 08:53 | Outpatient (BNVA) | payer OTHER, SELFPAY | PROVIDERS: PCP Internal Medicine; Visit Provider Internal Medicine | DX: J44.9 Chronic obstructive pulmonary disease, unspecified (principal); E03.9 Hypothyroidism, unspecified; F41.9 Anxiety disorder, unspecified; F17.210 Nicotine dependence, cigarettes, uncomplicated; Z71.6 Tobacco abuse counseling | CPT/HCPCS: 96127; 99212 ==

== ENCOUNTER 2025-04-25 09:51 | Outpatient (REF) | payer OTHER, SELFPAY ==
[2025-04-25 10:56] LABS: Hematocrit 29.2 % (37.0-47.0); Hemoglobin 9.6 g/dl (12.0-16.0); Mean Corpuscular HGB Conc 32.9 g/dl (31.0-35.0); Mean Corpuscular Hemoglobin 30.7 pg (27.0-33.0); Mean Corpuscular Volume 93.3 fL (80.0-98.0); NRBC Abs Auto 0.000 X10*3/uL (0.0-0.012); NRBC Pct Auto 0.0 /100WBC (0.0-0.2); Platelet Count 221 X10*3/uL (160-400); Red Blood Count 3.13 X10*6/uL (4.20-5.50); White Blood Count 7.2 X10*3/uL (4.8-10.8)
[2025-04-25 11:56] LABS: Thyroid Stimulating Hormone 0.58 uIU/mL (0.32-4.0)
[2025-04-25 11:57] LABS: Alanine Aminotransferase < 6 U/L (0-31); Albumin Level 3.5 g/dL (3.5-5.0); Alkaline Phosphatase 83 U/L (39-117); Anion Gap 9 (12-20); Aspartate Amino Transferase 16 U/L (5-31); Blood Urea Nitrogen 19 mg/dL (9-16); Calcium 8.8 mg/dL (8.4-10.2); Carbon Dioxide 30 mmol/L (22-29); Chloride 102 mmol/L (96-108); Cholesterol 116 mg/dL (<200); Estimated Glomerular Filt Rate 31; HDL Cholesterol 33 mg/dL (>40); Potassium 4.3 mmol/L (3.3-5.1); Sodium 137 mmol/L (135-145); Total Protein 7.3 g/dL (6.5-8.0); Triglycerides 69 mg/dL (<150)
== END 2025-04-25 09:52 | disposition home or self-care (01) ==
LOC: HO.LAB 09:51
PROVIDERS: PCP Internal Medicine; Visit Provider Internal Medicine
DX: F41.1 Generalized anxiety disorder (principal); E78.00 Pure hypercholesterolemia, unspecified
CPT/HCPCS: 36415; 80048; 80061; 80076; 84443; 85027; 99212

== ENCOUNTER 2025-04-25 09:51 | Outpatient (AMB) | payer OTHER, SELFPAY ==
[2025-04-25 09:56] VITALS: BP 150/60; PULSE 71; RESP 18; TEMP 35.7; O2SAT 95; BMI 31.4
--- NOTE | 2025-04-25 09:56 | A.OFFPC_ITS ---
Vital Signs 04/25/25 09:56 Height 5 ft 2.5 in Weight 174 lb 8 oz BMI 31.4 BP 150/60 H Blood Pressure Location Lt brachial Position Sitting Respiration 18 Pulse 71 Pulse Source Pulse Oximeter Temp 96.2 F L Temp Source Temporal Artery Scan Pulse Oximetry (%) 95 Oxygen Delivery Method Room Air Intake Visit Reasons: 3mth f/u Silk Opener Required: No Accompanied by: MANUFACTURING SUPPORT ENGINEER Allergies No Known Allergies Allergy (Verified 04/25/25 10:22) Medication List - Last Reconciled 04/25/25 by James Del Toro MD albuterol sulfate 90 mcg/actuation 2 puffs inhalation Q6H PRN alendronate 70 mg PO QWEEK calcium carbonate-vitamin D3 500 mg-10 mcg (400 unit) 1 tab PO TID 90 days disposable gloves (Disposable Latex-Free Gloves) As directed fluticasone propion-salmeterol 250-50 mcg/dose 1 ea PO BID levothyroxine 112 mcg PO QAM lorazepam 1 mg PO DAILY PRN omeprazole 20 mg PO DAILY oxybutynin chloride 5 mg PO TID [reusable underpad/chux As directed] simvastatin 20 mg PO BEDTIME umeclidinium 62.5 mcg/actuation (Incruse Ellipta) 1 inh PO DAILY Tobacco use date assessed: 04/25/25 Fall risk assessment: No Falls in past year Last assessed Fall Risk: 04/25/25 Dental Screening Dental Screen Date: 04/25/25 Did you have a dental visit in the last 12 months?: No Did you have a dental problem in the last 6 months where you did not have access to dental care?: No Was dental information given to patient?: No [facility] Medical History Tobacco use disorder Breast calcification, left Obesity (BMI 30-39.9) Anxiety GERD (gastroesophageal reflux disease) Pure hypercholesterolemia Anxiety state, unspecified Overactive bladder Urge incontinence Acquired hypothyroidism Chronic obstructive pulmonary disease, unspecified Borderline hypercholesterolemia Surgical History History of D&C Family History Father No problems noted. Mother No problems noted. Brother No problems noted. Social History Housing: Apartment Alcohol intake: never Patient Tobacco Use Status: Current everyday Tobacco user Tobacco use type: Cigarette Cigarette Packs Per Day: 0.5 Cigarettes Per Day: 9 e-Cigarette/Vaping Use: Never Used Second Hand Smoke Exposure: Yes service: No Current occupational status: disabled Cognitive needs: Yes (walker) Hearing needs: No Vision needs: Yes (Glasses) Questionnaire PHQ-9 Over the last 2 weeks, how often have you been bothered by any of the following problems? 1. Little interest or pleasure in doing things: more than half the days 2. Feeling down, depressed, or hopeless: not at all 3. Trouble falling or staying asleep, or sleeping too much: several days 4. Feeling tired or having little energy: several days 5. Poor appetite or overeating: not at all 6. Feeling bad about yourself - or that you are a failure or have let yourself or your family down: nearly every day 7. Trouble concentrating on things, such as reading the newspaper or watching television: not at all 8. Moving or speaking so slowly that other people could have noticed. Or the opposite - being so fidgety or restless that you have been moving around a lot more than usual: not at all 9. Thoughts that you would be better off or of hurting yourself in some way: not at all Total score: 7 Source: Developed by Drs. Justin Gutierrez, Nicol Lorenzo, Star Arciniega and colleagues, with an educational krista from [employer]. Thrive Questionnaire Date Thrive assessed: 04/25/25 I am a: Patient What is your living situation today?: I have a steady place to live Within the past 12 months, did the food you bought not last and you didn't have the money to get more?: I choose not to answer this question Within the past 12 months, did you worry whether your food would run out before you got money to buy more?: I choose not to answer this question Do you have trouble paying for medicines?: I choose not to answer this question Do you have trouble getting transportation to medical appointments?: I choose not to answer this question Do you have trouble paying your heating and electricity bill?: I choose not to answer this question Do you have trouble taking care of your child, family member or friend?: I choose not to answer this question Do you have trouble with day-to-day activities such as bathing, preparing meals, shopping, managing finances, etc.?: I choose not to answer this question Are you currently unemployed and looking for a job?: I choose not to answer this question Are you interested in more education?: I choose not to answer this question Please select the resources that you would like help with: None Currently or been in a relationship where the following occur: I choose not to answer THRIVE Score: 0 AUDIT C Alcohol Use Questionnaire (AUDIT-C) 1. How often do you have a drink containing alcohol?: Never Total Score: 0 ZANA-7 AMB Questionnaire ZANA-7 Date ZANA - 7 assessed: 04/25/25 Feeling nervous, anxious, or on edge: 2 = More than half the days Not being able to stop or control worryin = More than half the days Worrying too much about different things: 3 = Nearly every day Trouble relaxin = More than half the days Being so restless that it is hard to sit still: 3 = Nearly every day Becoming easily annoyed or irritable: 0 = Not at all Feeling afraid as if something awful might happen: 0 = Not at all Total ZANA-7 score (0-4 normal; 5-9 mild; 10-14 moderate; 15-21 severe): 12 Source: Developed by Drs. Justin Gutierrez, Nicol Lorenzo, Star Arciniega and colleagues, with an educational krista from [employer]. Physical exam (Primary Care) Vital Signs: Last Vital Signs Temp 96.2 F L 04/25/25 09:56 Pulse 71 04/25/25 09:56 Resp 18 04/25/25 09:56 BP 150/60 H 04/25/25 09:56 Pulse Ox 95 04/25/25 09:56 Oxygen Delivery Method Room Air 04/25/25 09:56 Care Plan Goal for BP management: Blood pressure is elevated. Continue to monitor. BMI result Body Mass Index 31.4 Tobacco/Smoking Status: Tobacco use Status Tobacco use date assessed 04/25/25 04/25/25 10:05 Patient Tobacco Use Status Current everyday Tobacco 04/25/25 10:05 Tobacco use type Cigarette 04/25/25 10:05 e-Cigarette/Vaping Use Never Used 04/25/25 10:05 Are you ready to quit: No Tobacco cessation counseling provided: No PHQ-9: PHQ-9 Score PHQ-9: Total score 7 04/25/25 10:05 Thrive Assessment: Date of Thrive Assessment Date Thrive assessed 04/25/25 04/25/25 10:05 Currently or been in a relationship where the following occur: I choose not to answer Coding Level of Care Code Est Pt Level 4 (05652) Complex EM visit Add On G2211 Diagnoses Anxiety state, unspecified F41.1 Borderline hypercholesterolemia E78.00 Assessment & Plan Assessment & Plan (1) Anxiety state, unspecified: Code(s): F41.1 - Generalized anxiety disorder Category: Medical Plan: Condition is stable. (2) Borderline hypercholesterolemia: Code(s): E78.00 - Pure hypercholesterolemia, unspecified Category: Medical Plan: Blood work ordered. We will call with results. Plan History of Present Illness - The patient is an 84-year-old female presenting with blurred vision and weakness in the legs. - Blurred vision: The patient reports current blurry vision, with a previous eye examination showing no actionable findings. - Weakness in legs: The patient describes feeling weak in the legs, though details on the onset or progression are not provided. - Tobacco use: The patient continues to use tobacco, with no plans for cessation noted. Social History - Tobacco use: The patient continues to use tobacco, as indicated by the persistent smell. Review of Systems - Neurological: Reports weakness in the legs. - Ophthalmologic: Reports blurred vision. - Gastrointestinal: Denies abdominal pain. Physical Exam General: Cooperative and healthy appearing Nutritional Appearance: Well nourished Orientation/consciousness: Patient oriented x3 Limitations: No limitations Head: Normal to inspection General: Appearance normal, both eyes and all related structures Neck: Normal visual inspection Chest: Normal palpation of entire chest wall Respiratory: Normal respiratory effort Neurology: Patient oriented x3 Results Plan 1. Blurred Vision - Follow-up with a specialist in August for further evaluation. 2. Weakness In Legs - No specific plan discussed during the visit. 3. Tobacco Use - No cessation plan discussed during the visit. Discussion Notes During the visit, we discussed the patient's blurred vision and the plan to follow up with a specialist in August. We also noted the patient's continued tobacco use, but no cessation plan was discussed. Patient Instructions - Follow up with the specialist in August for blurred vision evaluation. - Continue current medications as prescribed. Orders: Orders Basic Metabolic Panel Today E78.00 - Pure hypercholesterolemia, unspecified, F41.1 - Generalized anxiety disorder Lipid Panel Today E78.00 - Pure hypercholesterolemia, unspecified, F41.1 - Generalized anxiety disorder Liver Panel Today E78.00 - Pure hypercholesterolemia, unspecified, F41.1 - Generalized anxiety disorder UA and rflx microscopic Today E78.00 - Pure hypercholesterolemia, unspecified, F41.1 - Generalized anxiety disorder Complete Blood Count no Diff Today E78.00 - Pure hypercholesterolemia, unspecified, F41.1 - Generalized anxiety disorder Thyroid Stimulating Hormone Today E78.00 - Pure hypercholesterolemia, unspecified, F41.1 - Generalized anxiety disorder
== END 2025-04-25 10:23 | disposition home or self-care (01) ==
LOC: HO.HMCH 09:51
PROVIDERS: PCP Internal Medicine; Visit Provider Internal Medicine
DX: F41.1 Generalized anxiety disorder (principal); E78.00 Pure hypercholesterolemia, unspecified

== ENCOUNTER 2025-04-26 08:58 | Outpatient (REF) | payer OTHER, SELFPAY ==
[2025-04-26 09:05] LABS: Appearance Urine Cloudy; Glucose Urine UA Negative (Negative); PH 5.5 (5.0-9.0); Specific Gravity - Urine 1.015 (1.005-1.025); UMIC TRIGGER UA YES
== END 2025-04-26 08:59 | disposition home or self-care (01) ==
LOC: HO.LNP 08:58
PROVIDERS: Visit Provider Internal Medicine
DX: N18.1 Chronic kidney disease, stage 1 (principal); E66.9 Obesity, unspecified; F41.9 Anxiety disorder, unspecified; E78.00 Pure hypercholesterolemia, unspecified
CPT/HCPCS: 81001; 81003

== ENCOUNTER → 2025-09-04 18:00 | Outpatient (BNV) | payer OTHER, SELFPAY | PROVIDERS: Emergency Provider Student in an Organized Health Care Education/Training Program; PCP Internal Medicine; Visit Provider Internal Medicine | DX: I49.1 Atrial premature depolarization (principal) | CPT/HCPCS: 93010 ==

== ENCOUNTER → 2025-09-04 18:57 | Outpatient (BNV) | payer OTHER, SELFPAY | PROVIDERS: Emergency Provider Student in an Organized Health Care Education/Training Program; PCP Internal Medicine; Visit Provider Nuclear Medicine | DX: R91.8 Other nonspecific abnormal finding of lung field (principal) | CPT/HCPCS: 71046; 71250 ==